=== PATIENT | female | born 1945 | race Caucasian/White ===

== ENCOUNTER 2024-05-19 10:02 | Inpatient (IN) | payer MEDICARE ==
[2024-05-19] MEDS ORDERED: Magnesium 2 GM/50 ML BAG (IN WATER) ONE (10:40)
[2024-05-19] MEDS ORDERED: methylPREDNISolone Sod Succ/PF 125 MG/2 ML VIAL ONE (10:41)
[2024-05-19 10:43] LABS: #Basophils Less than 0.03 10x3/uL (0.0-0.2); #Eosinophils Less than 0.03 10x3/uL (0.0-0.7); %Basophils 0.5 % (0.0-1.0); %Monocytes 8.5 % (0.0-10.0); %Neutrophils 78.8 % (42.0-75.0); Hematocrit 51.8 % (36.0-47.0); Hemoglobin 16.1 g/dL (12.0-16.0); Mean Corpuscular HGB CONC 31.1 g/dL (32.0-36.0); Mean Corpuscular Hemoglobin 29.6 pg (27.0-31.0); Mean Corpuscular Volume 95.2 fL (78.0-98.0); Mean Platelet Volume 8.8 fL (7.4-10.4); Platelet Count 260 10x3/uL (130-400); RBC Distribution Width 13.4 % (11.5-14.5); Red Blood Cell (RBC) Count 5.44 mill/uL (4.20-5.40)
[2024-05-19 11:05] LABS: ALT (SGPT) 26 U/L (8-55); AST (SGOT) 28 U/L (5-34); Albumin 3.6 g/dL (3.4-4.8); Alkaline Phosphatase 94 U/L (40-110); Anion Gap 17 mmol/L (10-20); BUN (Urea Nitrogen) 19 mg/dL (9.8-20.1); Bilirubin, Total 0.7 mg/dL (0.2-1.2); Calc. Creatinine Clearance 0 mL/min (70-130); Calcium 9.4 mg/dL (7.8-10.44); Carbon Dioxide 29 mmol/L (23-31); Chloride 87 mmol/L (98-107); Estimated GFR 68; Globulin 2.7 g/dL (2.4-3.5); Glucose 125 mg/dL (83-110); Magnesium 1.9 mg/dL (1.6-2.6); Potassium 4.1 mmol/L (3.5-5.1); Protein, Total 6.3 g/dL (5.8-8.1); Sodium 129 mmol/L (136-145)
[2024-05-19 11:11] LABS: Troponin I 0.036 ng/mL (< 0.028)
[2024-05-19] MEDS ORDERED: Ipratropium/Albuterol 3 ML NEB ONE ×2 (11:46→14:08)
[2024-05-19] MEDS ORDERED: Ipratropium/Albuterol 3 ML NEB NEB PRN (13:21)
[2024-05-19 14:06] VITALS: BMI 23.8
[2024-05-19] MEDS: Ipratropium/Albuterol 3 ML NEB NEB SCH (14:15)
[2024-05-19 14:23] LABS: Troponin I 0.028 ng/mL (< 0.028)
[2024-05-19] MEDS ORDERED: Ondansetron PF 4 MG/2 ML Vial IVP PRN (14:38)
[2024-05-19] MEDS ORDERED: Bisacodyl 5 MG TAB PO PRN (14:38)
[2024-05-19] MEDS ORDERED: Acetaminophen 650 MG Suppository PR PRN (14:38)
[2024-05-19] MEDS ORDERED: Senokot S 8.6-50 MG TAB PO PRN (14:38)
[2024-05-19] MEDS ORDERED: Dextrose 50% Abboject 50 ML SYRINGE SLOW IVP PRN (14:59)
[2024-05-19] MEDS ORDERED: Glucagon 1 MG/ML KIT IM PRN (14:59)
[2024-05-19] MEDS ORDERED: Insulin Lispro 100 UNIT/ML 10 ML VIAL SC PRN (14:59)
[2024-05-19] MEDS ORDERED: Dextrose 5% in Water 1,000 ML IV PRN (14:59)
[2024-05-19 15:54] LABS: Magnesium 2.4 mg/dL (1.6-2.6)
[2024-05-19 15:58] LABS: Troponin I 0.037 ng/mL (< 0.028)
[2024-05-19] MEDS: Guaifenesin DM 100-10/5 ML UDCUP PO SCH (16:08)
[2024-05-19] MEDS: FLU (Fluad Triv) TS24-25 (65UP)/MF59C/PF 45 MCG/0.5 ML Syringe IM ONE (16:34)
[2024-05-19] MEDS: Aspirin Chewable 81 MG TAB PO SCH (17:07)
[2024-05-19] MEDS: methylPREDNISolone Sod Succ 40 MG VIAL IVP SCH (17:14)
[2024-05-19 18:26] LABS: Magnesium 2.4 mg/dL (1.6-2.6)
[2024-05-19] MEDS: Budesonide 0.5 MG/2 ML NEB INH SCH (18:29)
[2024-05-19] MEDS: Arformoterol 15 MCG/2 ML NEB NEB SCH (18:29)
[2024-05-19] MEDS: Amoxicillin/Potassium Clav 875 MG TAB PO SCH (21:43)
[2024-05-19] MEDS: Famotidine 20 MG TAB PO SCH (21:43)
[2024-05-19] MEDS: Benzonatate 100 MG CAP PO PRN (21:43)
[2024-05-19] MEDS: Famotidine/PF 20 mg/2ml Vial SLOW IVP SCH (23:06)
[2024-05-20 05:11] LABS: #Basophils Less than 0.03 10x3/uL (0.0-0.2); #Eosinophils Less than 0.03 10x3/uL (0.0-0.7); %Lymphocytes 5.1 % (21.0-51.0); %Monocytes 5.3 % (0.0-10.0); %Neutrophils 89.4 % (42.0-75.0); Hematocrit 49.6 % (36.0-47.0); Hemoglobin 15.4 g/dL (12.0-16.0); Mean Corpuscular Hemoglobin 29.3 pg (27.0-31.0); Mean Corpuscular Volume 94.3 fL (78.0-98.0); Platelet Count 250 10x3/uL (130-400); RBC Distribution Width 13.4 % (11.5-14.5); Red Blood Cell (RBC) Count 5.26 mill/uL (4.20-5.40)
[2024-05-20 05:31] LABS: ALT (SGPT) 27 U/L (8-55); AST (SGOT) 33 U/L (5-34); Albumin 3.6 g/dL (3.4-4.8); Alkaline Phosphatase 85 U/L (40-110); Anion Gap 14 mmol/L (10-20); BUN (Urea Nitrogen) 16 mg/dL (9.8-20.1); Bilirubin, Total 0.5 mg/dL (0.2-1.2); Calc. Creatinine Clearance 54 mL/min (70-130); Calcium 9.2 mg/dL (7.8-10.44); Carbon Dioxide 33 mmol/L (23-31); Chloride 86 mmol/L (98-107); Estimated GFR 78; Globulin 2.7 g/dL (2.4-3.5); Glucose 110 mg/dL (83-110); Potassium 4.7 mmol/L (3.5-5.1); Protein, Total 6.3 g/dL (5.8-8.1); Sodium 128 mmol/L (136-145)
[2024-05-20] MEDS: Enoxaparin 40 MG (0.4 mL) SYRINGE SC SCH (08:45)
[2024-05-20] MEDS: Aspirin 81 mg Enteric Coated Tablet PO SCH (08:46)
[2024-05-20] MEDS: Acetaminophen 325 MG TAB PO PRN (08:46)
[2024-05-20] MEDS: Azithromycin 250 MG TAB PO SCH (11:07)
[2024-05-20] MEDS: Azithromycin 500 MG in Sodium Chloride 0.9% 250 ML 250 ML IVPB SCH (11:14)
[2024-05-20] MEDS: Insulin Lispro 100 UNIT/ML 10 ML VIAL SC PRN (13:59)
[2024-05-20] MEDS: Montelukast Sodium 10 mg Tablet PO SCH (20:22)
[2024-05-21 05:05] LABS: #Basophils Less than 0.03 10x3/uL (0.0-0.2); #Eosinophils Less than 0.03 10x3/uL (0.0-0.7); %Basophils 0.1 % (0.0-1.0); %Lymphocytes 1.9 % (21.0-51.0); %Monocytes 4.5 % (0.0-10.0); %Neutrophils 93.2 % (42.0-75.0); Hematocrit 47.6 % (36.0-47.0); Hemoglobin 14.4 g/dL (12.0-16.0); Mean Corpuscular HGB CONC 30.3 g/dL (32.0-36.0); Mean Corpuscular Hemoglobin 28.9 pg (27.0-31.0); Mean Corpuscular Volume 95.6 fL (78.0-98.0); Mean Platelet Volume 8.7 fL (7.4-10.4); Platelet Count 252 10x3/uL (130-400); RBC Distribution Width 13.5 % (11.5-14.5); Red Blood Cell (RBC) Count 4.98 mill/uL (4.20-5.40)
[2024-05-21 05:23] LABS: Anion Gap 9 mmol/L (10-20); BUN (Urea Nitrogen) 19 mg/dL (9.8-20.1); Calc. Creatinine Clearance 60 mL/min (70-130); Calcium 9.2 mg/dL (7.8-10.44); Carbon Dioxide 38 mmol/L (23-31); Chloride 86 mmol/L (98-107); Estimated GFR 87; Glucose 131 mg/dL (83-110); Potassium 4.5 mmol/L (3.5-5.1); Sodium 128 mmol/L (136-145)
[2024-05-21] MEDS: predniSONE 20 MG TAB PO SCH (09:30)
[2024-05-21] MEDS: Azithromycin 250 MG TAB PO SCH (09:30)
[2024-05-21 12:11] VITALS: BP 118/57; TEMP 97.8
== END 2024-05-21 15:00 | disposition home or self-care (01) | DRG 189 ==
LOC: ERS 10:02 → ERHOLD 13:28 → 2NO 15:15
PROVIDERS: ADMIT Family Medicine; ATTEND Internal Medicine
DX: J96.21 Acute and chronic respiratory failure with hypoxia (principal); I21.A1 Myocardial infarction type 2; I50.22 Chronic systolic (congestive) heart failure; J44.1 Chronic obstructive pulmonary disease with (acute) exacerbation; E87.1 Hypo-osmolality and hyponatremia; R73.03 Prediabetes; D75.1 Secondary polycythemia; J44.9 Chronic obstructive pulmonary disease, unspecified; I48.91 Unspecified atrial fibrillation; Z79.899 Other long term (current) drug therapy; Z90.710 Acquired absence of both cervix and uterus; Z90.49 Acquired absence of other specified parts of digestive tract; Z98.890 Other specified postprocedural states
CPT/HCPCS: 36415; 36416; 71045; 80048; 80053; 83735; 83880; 84484; 85025; 93005; 93010; 94640; J1650; J1815; J2919; J3475; J7512; J7620; J7626

== ENCOUNTER 2024-05-23 12:44 | Inpatient (IN) | payer MEDICARE ==
[2024-05-23 13:32] LABS: #Basophils Less than 0.03 10x3/uL (0.0-0.2); #Eosinophils Less than 0.03 10x3/uL (0.0-0.7); %Basophils 0.1 % (0.0-1.0); %Lymphocytes 2.6 % (21.0-51.0); %Monocytes 2.6 % (0.0-10.0); %Neutrophils 94.3 % (42.0-75.0); Hematocrit 54.4 % (36.0-47.0); Hemoglobin 17.1 g/dL (12.0-16.0); Mean Corpuscular HGB CONC 31.4 g/dL (32.0-36.0); Mean Corpuscular Hemoglobin 28.9 pg (27.0-31.0); Mean Platelet Volume 8.7 fL (7.4-10.4); Platelet Count 269 10x3/uL (130-400); RBC Distribution Width 13.7 % (11.5-14.5); Red Blood Cell (RBC) Count 5.91 mill/uL (4.20-5.40)
[2024-05-23 13:33] LABS: ALT (SGPT) 46 U/L (8-55); AST (SGOT) 37 U/L (5-34); Albumin 4.1 g/dL (3.4-4.8); Alkaline Phosphatase 81 U/L (40-110); Anion Gap 10 mmol/L (10-20); BUN (Urea Nitrogen) 20 mg/dL (9.8-20.1); Calc. Creatinine Clearance 0 mL/min (70-130); Calcium 9.7 mg/dL (7.8-10.44); Carbon Dioxide 39 mmol/L (23-31); Chloride 82 mmol/L (98-107); Estimated GFR 77; Globulin 2.6 g/dL (2.4-3.5); Glucose 195 mg/dL (83-110); Lipase 24 U/L (8-78); Potassium 4.1 mmol/L (3.5-5.1); Protein, Total 6.7 g/dL (5.8-8.1); Sodium 127 mmol/L (136-145)
[2024-05-23 13:36] LABS: Troponin I 0.026 ng/mL (< 0.028)
[2024-05-23 13:55] LABS: Bacteria/HPF None Seen HPF (None Seen); Bilirubin Negative (Negative); Blood, Urine Negative (Negative); CAUTI Indications for Culture Alt mental st,lethar; Clarity Clear (Clear); Glucose, Urine (Dipstick) Normal (Negative); Ketone, Urine Negative (Negative); Leukocyte Negative Leu/uL (Negative); Nitrite Negative (Negative); Protein, Urine (Dipstick) Negative (Neg-Trace); RBC/HPF None Seen HPF (0-3); Specific Gravity, Urine 1.007 (1.002-1.036); Squamous Epithelial 0-3 HPF (0-3); Urobilinogen Normal mg/dL (Less than 2); WBC/HPF 0-3 HPF (0-3)
[2024-05-23 14:05] LABS: INR-International Normal Ratio 1.2; Prothrombin Time 14.7 sec (12.0-14.7)
[2024-05-23 14:06] LABS: PTT 34.1 sec (22.9-36.1)
[2024-05-23 14:08] LABS: Urine Culture Reflex No No
[2024-05-23] MEDS ORDERED: Acetaminophen 650 MG Suppository PR PRN (14:47)
[2024-05-23] MEDS ORDERED: Ondansetron ODT 4 MG TAB PO PRN (14:47)
[2024-05-23] MEDS ORDERED: Ondansetron PF 4 MG/2 ML Vial IVP PRN (14:47)
[2024-05-23 16:32] LABS: Lactic Acid 1.78 mmol/L (0.5-2.2)
[2024-05-23] MEDS: methylPREDNISolone Sod Succ 40 MG VIAL IVP SCH (17:08)
[2024-05-23] MEDS ORDERED: Glucagon 1 MG/ML KIT IM PRN (17:51)
[2024-05-23] MEDS ORDERED: Dextrose 5% in Water 1,000 ML IV PRN (17:51)
[2024-05-23] MEDS ORDERED: Insulin Lispro 100 UNIT/ML 10 ML VIAL SC PRN (17:51)
[2024-05-23] MEDS ORDERED: Dextrose 50% Abboject 50 ML SYRINGE SLOW IVP PRN (17:51)
[2024-05-23] MEDS: Ipratropium/Albuterol 3 ML NEB NEB SCH (18:56)
[2024-05-23] MEDS: Mometasone 200 MCG/Formoterol 5 MCG 120 PUFF INHALER INH SCH (18:57)
[2024-05-23] MEDS: Montelukast Sodium 10 mg Tablet PO SCH (20:39)
[2024-05-23] MEDS: Pramipexole Di-HCl 1 MG TAB PO SCH (20:39)
[2024-05-23] MEDS: LevoFLOXacin 750 MG TAB PO SCH (20:39)
[2024-05-23] MEDS ORDERED: Non-Formulary Item 1 EACH (Tiotropium Bromide 4 GM Inhaler) INH SCH (21:00)
[2024-05-23] MEDS: Acetaminophen 325 MG TAB PO PRN (23:45)
[2024-05-24 04:29] LABS: #Basophils Less than 0.03 10x3/uL (0.0-0.2); #Eosinophils Less than 0.03 10x3/uL (0.0-0.7); %Lymphocytes 3.7 % (21.0-51.0); %Neutrophils 93.5 % (42.0-75.0); Hematocrit 49.3 % (36.0-47.0); Hemoglobin 15.1 g/dL (12.0-16.0); Mean Corpuscular HGB CONC 30.6 g/dL (32.0-36.0); Mean Corpuscular Volume 94.8 fL (78.0-98.0); Mean Platelet Volume 8.6 fL (7.4-10.4); Platelet Count 212 10x3/uL (130-400); RBC Distribution Width 13.5 % (11.5-14.5)
[2024-05-24 04:52] LABS: Anion Gap 11 mmol/L (10-20); BUN (Urea Nitrogen) 18 mg/dL (9.8-20.1); Calc. Creatinine Clearance 59 mL/min (70-130); Calcium 8.7 mg/dL (7.8-10.44); Carbon Dioxide 32 mmol/L (23-31); Chloride 86 mmol/L (98-107); Estimated GFR 88; Glucose 126 mg/dL (83-110); Sodium 124 mmol/L (136-145)
[2024-05-24] MEDS: Enoxaparin 40 MG (0.4 mL) SYRINGE SC SCH (08:42)
[2024-05-24] MEDS: dilTIAZem CD 120 MG CAP PO SCH (08:42)
[2024-05-24] MEDS ORDERED: Roflumilast [Daliresp] 500 MCG Tablet PO SCH (09:00)
[2024-05-24 14:25] LABS: Sodium 128 mmol/L (136-145)
[2024-05-24] MEDS: LevoFLOXacin 750 MG TAB PO SCH (19:57)
[2024-05-24] MEDS ORDERED: Furosemide 20 MG TAB PO SCH (21:00)
[2024-05-25] MEDS: Ipratropium/Albuterol 3 ML NEB NEB PRN (03:38)
[2024-05-25 04:32] LABS: #Basophils Less than 0.03 10x3/uL (0.0-0.2); #Eosinophils Less than 0.03 10x3/uL (0.0-0.7); %Basophils 0.2 % (0.0-1.0); %Lymphocytes 2.3 % (21.0-51.0); %Monocytes 4.4 % (0.0-10.0); %Neutrophils 92.6 % (42.0-75.0); Hematocrit 48.9 % (36.0-47.0); Hemoglobin 14.6 g/dL (12.0-16.0); Mean Corpuscular HGB CONC 29.9 g/dL (32.0-36.0); Mean Corpuscular Hemoglobin 28.9 pg (27.0-31.0); Mean Corpuscular Volume 96.8 fL (78.0-98.0); Platelet Count 208 10x3/uL (130-400); RBC Distribution Width 13.8 % (11.5-14.5); Red Blood Cell (RBC) Count 5.05 mill/uL (4.20-5.40)
[2024-05-25 04:43] LABS: Anion Gap 12 mmol/L (10-20); BUN (Urea Nitrogen) 21 mg/dL (9.8-20.1); Calc. Creatinine Clearance 59 mL/min (70-130); Calcium 8.7 mg/dL (7.8-10.44); Carbon Dioxide 32 mmol/L (23-31); Chloride 89 mmol/L (98-107); Estimated GFR 88; Glucose 172 mg/dL (83-110); Potassium 5.3 mmol/L (3.5-5.1); Sodium 128 mmol/L (136-145)
[2024-05-25] MEDS: Furosemide 20 MG TAB PO SCH (09:09)
[2024-05-25] MEDS: Aspirin 81 mg Enteric Coated Tablet PO SCH (09:10)
[2024-05-25] MEDS: Insulin Lispro 100 UNIT/ML 10 ML VIAL SC PRN (19:23)
[2024-05-25] MEDS: methylPREDNISolone Sod Succ 40 MG VIAL IVP SCH (21:07)
[2024-05-26 04:13] LABS: Anion Gap 11 mmol/L (10-20); BUN (Urea Nitrogen) 24 mg/dL (9.8-20.1); Calc. Creatinine Clearance 60 mL/min (70-130); Calcium 8.8 mg/dL (7.8-10.44); Carbon Dioxide 39 mmol/L (23-31); Chloride 85 mmol/L (98-107); Estimated GFR 88; Glucose 129 mg/dL (83-110); Potassium 5.6 mmol/L (3.5-5.1); Sodium 129 mmol/L (136-145)
[2024-05-26 08:37] LABS: Actual Bicarbonate (HCO3v) 32.8 mEq/L (22-28); Base Excess 5.8 mEq/L (-2.0 to +3.0); Calcium, Ionized (venous) 1.07 mmol/L (1.16-1.32); Chloride (VBG) 85 mmol/L (98-106); Hematocrit-VBG 49 % (36.0-47.0); Hemoglobin (Hb) 16.5 g/dL (11.7-16.1); Potassium (VBG) 5.51 mmol/L (3.70-5.30); Sodium 125 mmol/L (133-146); pH (venous) 7.386 (7.32-7.43)
[2024-05-26] MEDS: Sodium Polystyrene Sulfonate 15 GM (60 mL) BOT PO SCH (13:09)
[2024-05-26] MEDS: Furosemide 20 MG TAB PO SCH (13:10)
[2024-05-26] MEDS: Budesonide 0.5 MG/2 ML NEB INH SCH (19:37)
[2024-05-26] MEDS: FLU (Fluad Triv) TS24-25 (65UP)/MF59C/PF 45 MCG/0.5 ML Syringe IM ONE (23:57)
[2024-05-27 04:36] LABS: #Basophils Less than 0.03 10x3/uL (0.0-0.2); #Eosinophils Less than 0.03 10x3/uL (0.0-0.7); %Basophils 0.3 % (0.0-1.0); %Lymphocytes 2.1 % (21.0-51.0); %Neutrophils 91.2 % (42.0-75.0); Hematocrit 47.2 % (36.0-47.0); Hemoglobin 14.4 g/dL (12.0-16.0); Mean Corpuscular HGB CONC 30.5 g/dL (32.0-36.0); Mean Corpuscular Hemoglobin 29.2 pg (27.0-31.0); Mean Corpuscular Volume 95.7 fL (78.0-98.0); Platelet Count 194 10x3/uL (130-400); RBC Distribution Width 13.7 % (11.5-14.5); Red Blood Cell (RBC) Count 4.93 mill/uL (4.20-5.40)
[2024-05-27 05:06] LABS: Anion Gap 11 mmol/L (10-20); BUN (Urea Nitrogen) 21 mg/dL (9.8-20.1); Calc. Creatinine Clearance 63 mL/min (70-130); Calcium 8.7 mg/dL (7.8-10.44); Carbon Dioxide 39 mmol/L (23-31); Chloride 82 mmol/L (98-107); Estimated GFR 89; Glucose 139 mg/dL (83-110); Potassium 5.2 mmol/L (3.5-5.1); Sodium 127 mmol/L (136-145)
[2024-05-28 06:29] LABS: Anion Gap 14 mmol/L (10-20); BUN (Urea Nitrogen) 20 mg/dL (9.8-20.1); Calc. Creatinine Clearance 65 mL/min (70-130); Calcium 8.7 mg/dL (7.8-10.44); Carbon Dioxide 38 mmol/L (23-31); Chloride 81 mmol/L (98-107); Estimated GFR 90; Glucose 99 mg/dL (83-110); Potassium 4.5 mmol/L (3.5-5.1); Sodium 128 mmol/L (136-145)
[2024-05-28 07:00] VITALS: BMI 23.0
[2024-05-28] MEDS: predniSONE 20 MG TAB PO SCH (09:46)
[2024-05-28 09:47] VITALS: BP 128/59
[2024-05-28 14:09] VITALS: TEMP 98.4
== END 2024-05-28 15:04 | disposition home or self-care (01) | DRG 189 ==
LOC: ERS 12:44 → IMCU/EMU 14:38
PROVIDERS: ADMIT Family Medicine; ATTEND Internal Medicine
PROC: 5A0935A Assistance with Respiratory Ventilation, Less than 24 Consecutive Hours, High Flow/Velocity Cannula (ICD-10-PCS; principal; 2024-05-23)
DX: J96.21 Acute and chronic respiratory failure with hypoxia (principal); I50.22 Chronic systolic (congestive) heart failure; E87.1 Hypo-osmolality and hyponatremia; J44.1 Chronic obstructive pulmonary disease with (acute) exacerbation; J96.22 Acute and chronic respiratory failure with hypercapnia; R73.03 Prediabetes; I11.0 Hypertensive heart disease with heart failure; R53.81 Other malaise; E87.5 Hyperkalemia; Z90.710 Acquired absence of both cervix and uterus; Z90.49 Acquired absence of other specified parts of digestive tract; Z98.890 Other specified postprocedural states; Z99.81 Dependence on supplemental oxygen
CPT/HCPCS: 36415; 36416; 71045; 80048; 80053; 81001; 82805; 83605; 83690; 83735; 83880; 84484; 85025; 85610; 85730; 87040; 87086; 93005; 94640; 94760; J1650; J2919; J7512; J7620; J7626

== ENCOUNTER 2024-06-28 15:29 | Inpatient (IN) | payer MEDICARE ==
[~2024-06-28 15:29] MED LIST: Iopamidol-370 76% 500 ML MDV (1 ML CHARGE) ONE
[2024-06-28 16:56] LABS: Hematocrit 44.2 % (36.0-47.0); Hemoglobin 13.5 g/dL (12.0-16.0); Mean Corpuscular HGB CONC 30.5 g/dL (32.0-36.0); Mean Corpuscular Hemoglobin 28.7 pg (27.0-31.0); Mean Corpuscular Volume 93.8 fL (78.0-98.0); Mean Platelet Volume 8.9 fL (7.4-10.4); Platelet Count 244 10x3/uL (130-400); RBC Distribution Width 15.2 % (11.5-14.5); Red Blood Cell (RBC) Count 4.71 mill/uL (4.20-5.40)
[2024-06-28 17:11] LABS: ALT (SGPT) 33 U/L (8-55); AST (SGOT) 32 U/L (5-34); Albumin 3.4 g/dL (3.4-4.8); Alkaline Phosphatase 96 U/L (40-110); Anion Gap 20 mmol/L (10-20); BUN (Urea Nitrogen) 22 mg/dL (9.8-20.1); Bilirubin, Total 1.4 mg/dL (0.2-1.2); Calc. Creatinine Clearance 0 mL/min (70-130); Calcium 10.4 mg/dL (7.8-10.44); Carbon Dioxide 42 mmol/L (23-31); Chloride 80 mmol/L (98-107); Estimated GFR 89; Globulin 3.3 g/dL (2.4-3.5); Glucose 158 mg/dL (83-110); Lipase 35 U/L (8-78); Potassium 3.2 mmol/L (3.5-5.1); Protein, Total 6.7 g/dL (5.8-8.1); Sodium 139 mmol/L (136-145)
[2024-06-28 17:15] LABS: Band 5 % (5-11); Macrocytosis SLIGHT = 6-15 cells HPF (0-5); Monocytes 1 % (0-10); Neutrophil 94 % (42-75); Platelet Adequacy Comment Platelets Normal; Polychromasia SLIGHT = 2-3 cells HPF (0-2); Tear Drops SLIGHT = 2-5 cells HPF (0-1)
[2024-06-28 17:19] LABS: Troponin I 0.038 ng/mL (< 0.028)
[2024-06-28] MEDS ORDERED: Sodium Chloride 0.9% 250 ML 0 ML ONE (18:03)
[2024-06-28] MEDS ORDERED: Piperacillin/Tazobactam 4.5 GM VIAL ONE (18:03)
[2024-06-28] MEDS ORDERED: Sodium Chloride 0.9% 100 ML ONE (18:07)
[2024-06-28] MEDS ORDERED: Morphine 10 MG/ML VIAL ONE (18:26)
[2024-06-28] MEDS ORDERED: Oxymetazoline HCl 0.05% (30 ML BOT) ONE ×2 (18:34→18:35)
[2024-06-28] MEDS ORDERED: Lidocaine Viscous Sol 2% 15 ml UD Cup ONE (18:38)
[2024-06-28] MEDS ORDERED: Morphine 2 MG/ML VIAL SLOW IVP PRN ×2 (19:12→23:15)
[2024-06-28 19:29] LABS: PTT 27.1 sec (22.9-36.1)
[2024-06-28] MEDS ORDERED: EPINEPHrine 1 MG/ML VIAL ONE (19:37)
[2024-06-28] MEDS ORDERED: CEFAZOLIN 2 GM VIAL ONE (19:37)
[2024-06-28] MEDS ORDERED: Bupivacaine 0.25% HCL 30 ML VIAL ONE (19:38)
[2024-06-28] MEDS ORDERED: fentaNYL PF 100 MCG/2 ML SYRINGE ONE (20:42)
[2024-06-28] MEDS ORDERED: PROPOFOL 20 ML ONE (20:42)
[2024-06-28] MEDS ORDERED: SUCCINYLCHOLINE/SOD CL,ISO/PF 200 MG/10 ML SYRINGE FS ONE (20:43)
[2024-06-28] MEDS ORDERED: Rocuronium Bromide 10 MG/ML (10ML VIAL) ONE (20:43)
[2024-06-28] MEDS ORDERED: Lidocaine 2% PF 5 ML VIAL ONE (20:43)
[2024-06-28 22:59] LABS: Actual Bicarbonate (HCO3a) 32.2 mEq/L (22-28); Base Excess (BEa) 9.4 mEq/L (-2.0 to +3.0); CO2 Tension 36.9 mmHg (35.0-45.0); Hematocrit-ABG 32 % (36.0-47.0); Hemoglobin (Hb) 10.9 g/dL (12.0-16.0); O2 Tension (PaO2), arterial 76.6 mmHg (> 60.0); Potassium - ABG Lab 3.29 mmol/L (3.70-5.30); Puncture Site RR; pH, Arterial 7.559 (7.35-7.45)
[2024-06-28 23:00] LABS: ALV-art Gradient 162.475 mmHg (0-20)
[2024-06-28] MEDS ORDERED: DISCONTINUE PREVIOUS NARCOTIC PAIN MEDICATIONS AND BENZODIAZEPINES FS SCH (23:15)
[2024-06-28] MEDS ORDERED: Propofol BOLUS 1,000 MG/100 ML VIAL IV PRN (23:15)
[2024-06-28] MEDS ORDERED: Fentanyl BOLUS 250 ML IVPB PRN (23:15)
[2024-06-28] MEDS ORDERED: Lorazepam 2 MG/ML VIAL SLOW IVP PRN (23:15)
[2024-06-28] MEDS ORDERED: Dextrose 5% in Water 1,000 ML IV PRN (23:27)
[2024-06-28] MEDS ORDERED: Glucagon 1 MG/ML KIT IM PRN (23:27)
[2024-06-28] MEDS: Fentanyl CADD 100 ML IV SCH (23:29)
[2024-06-28] MEDS: Propofol 1,000 MG/100 ML VIAL IV PRN (23:34)
[2024-06-28] MEDS: Potassium Chloride 20 MEQ in Premix 1 BAG IVPB SCH (23:35)
[2024-06-28] MEDS: Sodium Chloride 0.9% 1,000 ML IV SCH (23:35)
[2024-06-28] MEDS: Propofol 1,000 MG/100 ML VIAL IV ONE (23:40)
[2024-06-28] MEDS: Piperacillin/Tazobactam 3.375 GM in Sodium Chloride 0.9% 100 ML IVPB SCH (23:43)
[2024-06-29] MEDS: Ventilator Sedation Protocol 1 EACH FS ONE (00:37)
[2024-06-29] MEDS: Famotidine/PF 20 mg/2ml Vial SLOW IVP SCH (00:39)
[2024-06-29] MEDS: Ipratropium/Albuterol 3 ML NEB NEB SCH ×2 (01:54→18:17)
[2024-06-29] MEDS: Sodium Chloride 0.9% 1,000 ML IV SCH ×2 (02:06→08:29)
[2024-06-29 06:01] LABS: Hematocrit 35.9 % (36.0-47.0); Hemoglobin 11.3 g/dL (12.0-16.0); Mean Corpuscular HGB CONC 31.5 g/dL (32.0-36.0); Mean Corpuscular Hemoglobin 29.1 pg (27.0-31.0); Mean Corpuscular Volume 92.5 fL (78.0-98.0); Platelet Count 167 10x3/uL (130-400); RBC Distribution Width 15.4 % (11.5-14.5); Red Blood Cell (RBC) Count 3.88 mill/uL (4.20-5.40)
[2024-06-29 06:29] LABS: Band 2 % (5-11); Lymphocytes 1 % (21-51); Metamyelocyte 1 % (0-0); Monocytes 1 % (0-10); Neutrophil 95 % (42-75); Platelet Adequacy Comment Platelets Normal; RBC Morphology Within Normal Limits
[2024-06-29 06:34] LABS: Anion Gap 12 mmol/L (10-20); BUN (Urea Nitrogen) 16 mg/dL (9.8-20.1); Calc. Creatinine Clearance 71 mL/min (70-130); Calcium 8.6 mg/dL (7.8-10.44); Carbon Dioxide 35 mmol/L (23-31); Chloride 96 mmol/L (98-107); Estimated GFR 93; Glucose 141 mg/dL (83-110); Magnesium 1.6 mg/dL (1.6-2.6); Potassium 3.9 mmol/L (3.5-5.1); Sodium 139 mmol/L (136-145)
[2024-06-29] MEDS: Mometasone 200 MCG/Formoterol 5 MCG 120 PUFF INHALER INH SCH (07:24)
[2024-06-29 08:11] LABS: Actual Bicarbonate (HCO3a) 37.6 mEq/L (22-28); CO2 Tension 53.4 mmHg (35.0-45.0); Carboxyhemoglobin (COHb) 1.5 gm% (0.0-3.0); Hematocrit-ABG 34 % (36.0-47.0); Hemoglobin (Hb) 11.4 g/dL (12.0-16.0); O2 Tension (PaO2), arterial 75.7 mmHg (> 60.0); pH, Arterial 7.465 (7.35-7.45)
[2024-06-29 08:16] LABS: Puncture Site Right Radial artery
[2024-06-29] MEDS: Heparin 5,000 UNITS/ML VIAL SC SCH (08:20)
[2024-06-29] MEDS: Ipratropium/Albuterol 3 ML NEB NEB PRN (10:21)
[2024-06-29] MEDS: Morphine 2 MG/ML VIAL SLOW IVP PRN (16:30)
[2024-06-29] MEDS: Budesonide 0.5 MG/2 ML NEB INH SCH (18:18)
[2024-06-29] MEDS: Montelukast Sodium 10 mg Tablet PO SCH (20:35)
[2024-06-29] MEDS: Dextrose 50% Abboject 50 ML SYRINGE SLOW IVP PRN (21:17)
[2024-06-29] MEDS: Potassium Chloride 10 MEQ in Dextrose 5 % And 0.9 % NaCl 1,000 ML IV SCH (23:09)
[2024-06-30 04:19] LABS: #Basophils 0.04 10x3/uL (0.0-0.2); #Eosinophils Less than 0.03 10x3/uL (0.0-0.7); %Basophils 0.2 % (0.0-1.0); %Lymphocytes 2.7 % (21.0-51.0); %Monocytes 2.3 % (0.0-10.0); %Neutrophils 93.6 % (42.0-75.0); Hematocrit 35.3 % (36.0-47.0); Hemoglobin 10.6 g/dL (12.0-16.0); Mean Corpuscular Hemoglobin 28.6 pg (27.0-31.0); Mean Corpuscular Volume 95.4 fL (78.0-98.0); Mean Platelet Volume 9.3 fL (7.4-10.4); Platelet Count 156 10x3/uL (130-400); RBC Distribution Width 15.4 % (11.5-14.5)
[2024-06-30 04:34] LABS: Anion Gap 9 mmol/L (10-20); BUN (Urea Nitrogen) 11 mg/dL (9.8-20.1); Calc. Creatinine Clearance 75 mL/min (70-130); Calcium 8.3 mg/dL (7.8-10.44); Carbon Dioxide 32 mmol/L (23-31); Chloride 102 mmol/L (98-107); Estimated GFR 95; Glucose 92 mg/dL (83-110); Potassium 3.3 mmol/L (3.5-5.1); Sodium 140 mmol/L (136-145)
[2024-06-30] MEDS: Ondansetron PF 4 MG/2 ML Vial IVP PRN (06:08)
[2024-06-30] MEDS ORDERED: Electrolyte Replacement Protocol 1 EACH FS SCH (07:30)
[2024-06-30] MEDS ORDERED: Electrolyte Replacement Protocol FS PRN (07:45)
[2024-06-30] MEDS: FLU (Fluad Triv) TS24-25 (65UP)/MF59C/PF 45 MCG/0.5 ML Syringe IM ONE (09:14)
[2024-06-30] MEDS: DC Sedation Protocol FS ONE (13:19)
[2024-07-01] MEDS: Ketorolac Tromethamine 30 MG (1 mL) VIAL IVP SCH (02:55)
[2024-07-01 05:29] LABS: #Basophils 0.03 10x3/uL (0.0-0.2); #Eosinophils Less than 0.03 10x3/uL (0.0-0.7); %Basophils 0.2 % (0.0-1.0); %Eosinophils 0.1 % (0.0-10.0); %Lymphocytes 4.2 % (21.0-51.0); %Monocytes 5.2 % (0.0-10.0); %Neutrophils 89.3 % (42.0-75.0); Hematocrit 33.6 % (36.0-47.0); Hemoglobin 10.2 g/dL (12.0-16.0); Mean Corpuscular HGB CONC 30.4 g/dL (32.0-36.0); Mean Corpuscular Hemoglobin 28.6 pg (27.0-31.0); Mean Corpuscular Volume 94.1 fL (78.0-98.0); Mean Platelet Volume 9.7 fL (7.4-10.4); Platelet Count 159 10x3/uL (130-400); RBC Distribution Width 15.1 % (11.5-14.5); Red Blood Cell (RBC) Count 3.57 mill/uL (4.20-5.40)
[2024-07-01 05:47] LABS: Anion Gap 8 mmol/L (10-20); BUN (Urea Nitrogen) 9 mg/dL (9.8-20.1); Calc. Creatinine Clearance 80 mL/min (70-130); Calcium 8.3 mg/dL (7.8-10.44); Carbon Dioxide 34 mmol/L (23-31); Chloride 104 mmol/L (98-107); Estimated GFR 97; Glucose 91 mg/dL (83-110); Magnesium 1.6 mg/dL (1.6-2.6); Potassium 2.8 mmol/L (3.5-5.1); Sodium 143 mmol/L (136-145)
[2024-07-01] MEDS: Magnesium 2 GM/50 ML(in water) 2 GM in Premix 1 BAG IVPB SCH (08:39)
[2024-07-01] MEDS: Potassium Chloride 20 MEQ in Premix 1 BAG IVPB SCH ×3 (08:44→22:50)
[2024-07-01 17:34] LABS: Potassium 3.2 mmol/L (3.5-5.1)
[2024-07-01] MEDS: Pramipexole Di-HCl 1 MG TAB PO SCH (20:46)
[2024-07-01] MEDS: Pramipexole Di-HCl 0.125 MG TAB PO SCH (23:36)
[2024-07-01] MEDS: Magnesium Oxide 400 MG TAB PO SCH (23:36)
[2024-07-02] MEDS: Pramipexole Di-HCl 1 MG TAB PO SCH ×2 (00:36→20:38)
[2024-07-02 05:10] LABS: #Basophils Less than 0.03 10x3/uL (0.0-0.2); #Eosinophils Less than 0.03 10x3/uL (0.0-0.7); %Basophils 0.1 % (0.0-1.0); %Eosinophils 0.1 % (0.0-10.0); %Lymphocytes 5.7 % (21.0-51.0); %Monocytes 8.5 % (0.0-10.0); %Neutrophils 84.2 % (42.0-75.0); Hematocrit 31.7 % (36.0-47.0); Hemoglobin 9.8 g/dL (12.0-16.0); Mean Corpuscular HGB CONC 30.9 g/dL (32.0-36.0); Mean Corpuscular Hemoglobin 28.9 pg (27.0-31.0); Mean Corpuscular Volume 93.5 fL (78.0-98.0); Mean Platelet Volume 9.5 fL (7.4-10.4); Platelet Count 158 10x3/uL (130-400); RBC Distribution Width 15.3 % (11.5-14.5); Red Blood Cell (RBC) Count 3.39 mill/uL (4.20-5.40)
[2024-07-02 05:27] LABS: Anion Gap 9 mmol/L (10-20); BUN (Urea Nitrogen) 7 mg/dL (9.8-20.1); Calc. Creatinine Clearance 76 mL/min (70-130); Carbon Dioxide 31 mmol/L (23-31); Chloride 105 mmol/L (98-107); Estimated GFR 99; Glucose 106 mg/dL (83-110); Magnesium 1.8 mg/dL (1.6-2.6); Potassium 3.7 mmol/L (3.5-5.1); Sodium 141 mmol/L (136-145)
[2024-07-02 05:29] LABS: Phosphorus 1.4 mg/dL (2.3-4.7)
[2024-07-02] MEDS: Magnesium 2 GM/50 ML(in water) 2 GM in Premix 1 BAG IVPB SCH (08:43)
[2024-07-02] MEDS: Magnesium Oxide 400 MG TAB PO SCH (08:45)
[2024-07-02] MEDS: PHOS-NAK 1 PKT PACK PO SCH (08:46)
[2024-07-02] MEDS: dilTIAZem CD 120 MG CAP PO SCH (15:50)
[2024-07-02] MEDS: HYDROcodone/Acetaminophen 5/325 mg Tablet PO PRN (16:42)
[2024-07-02] MEDS ORDERED: Methocarbamol 500 MG TAB PO PRN (20:17)
[2024-07-02] MEDS: Morphine 2 MG/ML VIAL SLOW IVP SCH (20:33)
[2024-07-02] MEDS: Melatonin 3 MG TAB PO PRN (20:38)
[2024-07-02] MEDS ORDERED: ROFLUMILAST 500 MCG PO SCH (21:00)
[2024-07-03 05:34] LABS: #Basophils Less than 0.03 10x3/uL (0.0-0.2); %Basophils 0.2 % (0.0-1.0); %Eosinophils 0.7 % (0.0-10.0); %Lymphocytes 8.2 % (21.0-51.0); %Monocytes 7.9 % (0.0-10.0); Hematocrit 32.8 % (36.0-47.0); Mean Corpuscular HGB CONC 30.5 g/dL (32.0-36.0); Mean Corpuscular Hemoglobin 28.7 pg (27.0-31.0); Mean Platelet Volume 9.6 fL (7.4-10.4); Platelet Count 159 10x3/uL (130-400); RBC Distribution Width 15.4 % (11.5-14.5); Red Blood Cell (RBC) Count 3.49 mill/uL (4.20-5.40)
[2024-07-03 05:48] LABS: Anion Gap 10 mmol/L (10-20); BUN (Urea Nitrogen) 7 mg/dL (9.8-20.1); Calc. Creatinine Clearance 0 mL/min (70-130); Carbon Dioxide 32 mmol/L (23-31); Chloride 103 mmol/L (98-107); Estimated GFR 98; Glucose 63 mg/dL (83-110); Potassium 3.9 mmol/L (3.5-5.1); Sodium 141 mmol/L (136-145)
[2024-07-03 05:51] LABS: Phosphorus 3.4 mg/dL (2.3-4.7)
[2024-07-03] MEDS ORDERED: MD-Gastroview 120 ML BOT ONE (08:53)
[2024-07-03] MEDS: Magnesium 2 GM/50 ML(in water) 2 GM in Premix 1 BAG IVPB SCH (08:56)
[2024-07-03] MEDS: Sacubitril 24MG/Valsartan 26 MG TAB PO SCH (08:57)
[2024-07-03] MEDS: Dextrose 5 %-0.45 % NaCl 1,000 ML IV SCH ×2 (18:25→21:20)
[2024-07-03] MEDS: Ketorolac Tromethamine 30 MG (1 mL) VIAL IVP SCH (18:25)
[2024-07-03] MEDS: Enoxaparin 30 MG (0.3 mL) SYRINGE SC SCH (21:37)
[2024-07-04 05:43] LABS: #Basophils 0.03 10x3/uL (0.0-0.2); %Basophils 0.2 % (0.0-1.0); %Eosinophils 0.2 % (0.0-10.0); %Monocytes 6.6 % (0.0-10.0); %Neutrophils 86.7 % (42.0-75.0); Hematocrit 35.2 % (36.0-47.0); Hemoglobin 10.8 g/dL (12.0-16.0); Mean Corpuscular HGB CONC 30.7 g/dL (32.0-36.0); Mean Corpuscular Hemoglobin 28.8 pg (27.0-31.0); Mean Corpuscular Volume 93.9 fL (78.0-98.0); Mean Platelet Volume 9.4 fL (7.4-10.4); Platelet Count 183 10x3/uL (130-400); RBC Distribution Width 15.3 % (11.5-14.5); Red Blood Cell (RBC) Count 3.75 mill/uL (4.20-5.40)
[2024-07-04 06:00] LABS: Anion Gap 14 mmol/L (10-20); BUN (Urea Nitrogen) 10 mg/dL (9.8-20.1); Calc. Creatinine Clearance 0 mL/min (70-130); Calcium 7.9 mg/dL (7.8-10.44); Carbon Dioxide 26 mmol/L (23-31); Chloride 102 mmol/L (98-107); Estimated GFR 94; Glucose 182 mg/dL (83-110); Potassium 4.1 mmol/L (3.5-5.1); Sodium 138 mmol/L (136-145)
[2024-07-04] MEDS: Ipratropium/Albuterol 3 ML NEB NEB SCH (12:49)
[2024-07-04] MEDS: Morphine 2 MG/ML VIAL SLOW IVP PRN (14:11)
[2024-07-04] MEDS ORDERED: Rocuronium Bromide 10 MG/ML (10ML VIAL) ONE ×2 (15:51→17:26)
[2024-07-04] MEDS ORDERED: Lidocaine 2% PF 100 mg/5 ml Syringe ONE (15:51)
[2024-07-04] MEDS ORDERED: fentaNYL PF 100 MCG/2 ML SYRINGE ONE (15:51)
[2024-07-04] MEDS ORDERED: NOREPINEPHRINE 8 MG/250 ML-D5W 250 ML ONE (15:51)
[2024-07-04] MEDS ORDERED: PHENYLEPHRINE-NS 100 MCG/ML 10 ML SYRINGE ONE (16:31)
[2024-07-04] MEDS ORDERED: Dexamethasone 20 MG/5 ML VIAL ONE (17:03)
[2024-07-04] MEDS ORDERED: Ondansetron PF 4 MG/2 ML Vial ONE (17:03)
[2024-07-04] MEDS ORDERED: Ventilator Sedation Protocol FS SCH (18:15)
[2024-07-04] MEDS ORDERED: Propofol 1,000 MG/100 ML VIAL IV PRN (18:30)
[2024-07-04] MEDS ORDERED: Morphine 2 MG/ML VIAL SLOW IVP PRN (18:30)
[2024-07-04] MEDS ORDERED: DISCONTINUE PREVIOUS NARCOTIC PAIN MEDICATIONS AND BENZODIAZEPINES FS SCH (18:30)
[2024-07-04] MEDS ORDERED: Fentanyl BOLUS 250 ML IVPB PRN (18:30)
[2024-07-04] MEDS ORDERED: Propofol BOLUS 1,000 MG/100 ML VIAL IV PRN (18:30)
[2024-07-04] MEDS: Dextrose 5 %-0.45 % NaCl 1,000 ML IV SCH ×2 (18:51→21:16)
[2024-07-04] MEDS: Lactated Ringer's 1,000 ML IV SCH (18:52)
[2024-07-04] MEDS: Fentanyl CADD 100 ML IV SCH (19:27)
[2024-07-04] MEDS: Sodium Chloride 0.9% 500 ML IV SCH ×3 (19:49→21:15)
[2024-07-04 19:51] LABS: Actual Bicarbonate (HCO3a) 29.9 mEq/L (22-28); Base Excess (BEa) 4.4 mEq/L (-2.0 to +3.0); CO2 Tension 48.2 mmHg (35.0-45.0); Calcium, Ionized (arterial) 1.14 mmol/L (1.12-1.30); Carboxyhemoglobin (COHb) 1.4 gm% (0.0-3.0); Hematocrit-ABG 36 % (36.0-47.0); Hemoglobin (Hb) 12.1 g/dL (12.0-16.0); O2 Tension (PaO2), arterial 68.2 mmHg (> 60.0); Potassium - ABG Lab 3.22 mmol/L (3.70-5.30)
[2024-07-04 19:52] LABS: Puncture Site Left Brachial artery
[2024-07-04] MEDS: Albumin 25% 25 GM (100 mL) BOT IVPB SCH (20:30)
[2024-07-04] MEDS: Albumin 25% 100 ML ONE (20:52)
[2024-07-04] MEDS: Potassium Chloride 20 MEQ in Premix 1 BAG IVPB SCH (20:53)
[2024-07-04] MEDS: Hydrocortisone Sod Succ/PF 100 mg/2 ml Vial IVP SCH (21:50)
[2024-07-04 21:54] LABS: #Basophils 0.04 10x3/uL (0.0-0.2); #Eosinophils Less than 0.03 10x3/uL (0.0-0.7); %Basophils 0.2 % (0.0-1.0); %Lymphocytes 1.1 % (21.0-51.0); %Neutrophils 95.9 % (42.0-75.0); Hemoglobin 8.9 g/dL (12.0-16.0); Mean Corpuscular HGB CONC 30.7 g/dL (32.0-36.0); Mean Corpuscular Hemoglobin 28.8 pg (27.0-31.0); Mean Corpuscular Volume 93.9 fL (78.0-98.0); Mean Platelet Volume 10.1 fL (7.4-10.4); Platelet Count 151 10x3/uL (130-400); RBC Distribution Width 15.3 % (11.5-14.5); Red Blood Cell (RBC) Count 3.09 mill/uL (4.20-5.40)
[2024-07-04] MEDS: NOREPINEPHRINE 8 MG/250 ML-D5W 250 ML IVPB SCH (22:20)
[2024-07-04] MEDS: NOREPINEPHRINE 8 MG/250 ML-D5W 250 ML ONE (22:27)
[2024-07-04 23:42] LABS: Chloride 104 mmol/L (98-107); Potassium 3.2 mmol/L (3.5-5.1); Sodium 141 mmol/L (136-145)
[2024-07-04 23:43] LABS: Calcium 7.2 mg/dL (7.8-10.44); Glucose 210 mg/dL (83-110)
[2024-07-04 23:44] LABS: Anion Gap 13 mmol/L (10-20); Carbon Dioxide 27 mmol/L (23-31)
[2024-07-04 23:47] LABS: BUN (Urea Nitrogen) 9 mg/dL (9.8-20.1); Calc. Creatinine Clearance 0 mL/min (70-130); Estimated GFR 97
[2024-07-05] MEDS: Dextrose 5 %-0.45 % NaCl 1,000 ML IV SCH (00:50)
[2024-07-05 04:56] LABS: Hematocrit 35.1 % (36.0-47.0); Hemoglobin 11.1 g/dL (12.0-16.0); Mean Corpuscular HGB CONC 31.6 g/dL (32.0-36.0); Mean Corpuscular Volume 91.6 fL (78.0-98.0); Mean Platelet Volume 10.2 fL (7.4-10.4); Platelet Count 171 10x3/uL (130-400); RBC Distribution Width 14.9 % (11.5-14.5); Red Blood Cell (RBC) Count 3.83 mill/uL (4.20-5.40)
[2024-07-05 05:09] LABS: ALT (SGPT) 27 U/L (8-55); AST (SGOT) 24 U/L (5-34); Albumin 2.2 g/dL (3.4-4.8); Alkaline Phosphatase 54 U/L (40-110); Anion Gap 8 mmol/L (10-20); BUN (Urea Nitrogen) 9 mg/dL (9.8-20.1); Bilirubin, Total 1.4 mg/dL (0.2-1.2); Calc. Creatinine Clearance 78 mL/min (70-130); Calcium 7.6 mg/dL (7.8-10.44); Carbon Dioxide 29 mmol/L (23-31); Chloride 103 mmol/L (98-107); Estimated GFR 95; Globulin 1.9 g/dL (2.4-3.5); Glucose 320 mg/dL (83-110); Magnesium 1.8 mg/dL (1.6-2.6); Phosphorus 1.7 mg/dL (2.3-4.7); Potassium 3.7 mmol/L (3.5-5.1); Protein, Total 4.1 g/dL (5.8-8.1); Sodium 136 mmol/L (136-145)
[2024-07-05] MEDS: Sodium Chloride 0.9% 1,000 ML IV SCH ×2 (05:25→07:52)
[2024-07-05] MEDS: Insulin Lispro 100 UNIT/ML 10 ML VIAL SC PRN (05:32)
[2024-07-05 06:17] LABS: Band 26 % (5-11); Lymphocytes 1 % (21-51); Metamyelocyte 1 % (0-0); Monocytes 2 % (0-10); Neutrophil 70 % (42-75); Platelet Adequacy Comment Platelets Normal; Polychromasia SLIGHT = 2-3 cells HPF (0-2); Reactive Lymphocytes 1 % (0-10)
[2024-07-05] MEDS: Lactated Ringer's 1,000 ML IV SCH ×2 (07:50→18:08)
[2024-07-05] MEDS: Hydrocortisone Sod Succ/PF 100 mg/2 ml Vial IVP SCH (08:05)
[2024-07-05] MEDS: Pantoprazole 40 MG VIAL IVP SCH (08:05)
[2024-07-05] MEDS: Lorazepam 2 MG/ML VIAL SLOW IVP PRN (08:46)
[2024-07-05] MEDS: Magnesium 2 GM/50 ML(in water) 2 GM in Premix 1 BAG IVPB SCH (09:01)
[2024-07-05] MEDS: Potassium Phosphate 30 MMOL in Sodium Chloride 0.9% 250 ML 250 ML IVPB SCH (09:31)
[2024-07-05] MEDS ORDERED: LYTES IN TPN IVPB PRN (10:44)
[2024-07-05] MEDS: MULTIVITAMINS IV SCH (13:32)
[2024-07-05] MEDS: D15W AA IV SCH (13:32)
[2024-07-05] MEDS: MULTITRACE IV SCH (13:32)
[2024-07-05] MEDS: [UNRECOGNIZED DRUG - OTHER] IV SCH (13:32)
[2024-07-05 16:16] LABS: #Basophils Less than 0.03 10x3/uL (0.0-0.2); #Eosinophils Less than 0.03 10x3/uL (0.0-0.7); %Basophils 0.1 % (0.0-1.0); %Lymphocytes 3.5 % (21.0-51.0); %Monocytes 2.7 % (0.0-10.0); Hematocrit 27.2 % (36.0-47.0); Hemoglobin 8.7 g/dL (12.0-16.0); Mean Corpuscular Hemoglobin 28.9 pg (27.0-31.0); Mean Corpuscular Volume 90.4 fL (78.0-98.0); Mean Platelet Volume 9.3 fL (7.4-10.4); Platelet Count 139 10x3/uL (130-400); RBC Distribution Width 15.7 % (11.5-14.5); Red Blood Cell (RBC) Count 3.01 mill/uL (4.20-5.40)
[2024-07-05 16:35] LABS: Anion Gap 9 mmol/L (10-20); BUN (Urea Nitrogen) 7 mg/dL (9.8-20.1); Calc. Creatinine Clearance 97 mL/min (70-130); Calcium 7.7 mg/dL (7.8-10.44); Carbon Dioxide 29 mmol/L (23-31); Chloride 105 mmol/L (98-107); Estimated GFR 100; Glucose 182 mg/dL (83-110); Potassium 3.7 mmol/L (3.5-5.1); Sodium 139 mmol/L (136-145)
[2024-07-06 05:17] LABS: #Basophils Less than 0.03 10x3/uL (0.0-0.2); #Eosinophils Less than 0.03 10x3/uL (0.0-0.7); %Basophils 0.2 % (0.0-1.0); %Lymphocytes 3.3 % (21.0-51.0); %Monocytes 2.5 % (0.0-10.0); %Neutrophils 92.7 % (42.0-75.0); Hematocrit 23.2 % (36.0-47.0); Hemoglobin 7.3 g/dL (12.0-16.0); Mean Corpuscular HGB CONC 31.5 g/dL (32.0-36.0); Mean Corpuscular Volume 92.1 fL (78.0-98.0); Mean Platelet Volume 9.8 fL (7.4-10.4); Platelet Count 126 10x3/uL (130-400); RBC Distribution Width 15.9 % (11.5-14.5); Red Blood Cell (RBC) Count 2.52 mill/uL (4.20-5.40)
[2024-07-06 05:25] LABS: ALT (SGPT) 16 U/L (8-55); AST (SGOT) 13 U/L (5-34); Albumin 2.6 g/dL (3.4-4.8); Alkaline Phosphatase 36 U/L (40-110); Anion Gap 8 mmol/L (10-20); BUN (Urea Nitrogen) 8 mg/dL (9.8-20.1); Bilirubin, Total 0.5 mg/dL (0.2-1.2); Calc. Creatinine Clearance 83 mL/min (70-130); Calcium 8.2 mg/dL (7.8-10.44); Carbon Dioxide 31 mmol/L (23-31); Chloride 105 mmol/L (98-107); Estimated GFR 96; Globulin 1.5 g/dL (2.4-3.5); Glucose 192 mg/dL (83-110); Potassium 3.4 mmol/L (3.5-5.1); Protein, Total 4.1 g/dL (5.8-8.1); Sodium 141 mmol/L (136-145)
[2024-07-06 05:35] LABS: Phosphorus 2.3 mg/dL (2.3-4.7)
[2024-07-06 07:11] LABS: Actual Bicarbonate (HCO3a) 31.2 mEq/L (22-28); Base Excess (BEa) 5.3 mEq/L (-2.0 to +3.0); CO2 Tension 52.9 mmHg (35.0-45.0); Calcium, Ionized (arterial) 1.23 mmol/L (1.12-1.30); Carboxyhemoglobin (COHb) 0.3 gm% (0.0-3.0); Hematocrit-ABG 28 % (36.0-47.0); Hemoglobin (Hb) 9.6 g/dL (12.0-16.0); Potassium - ABG Lab 3.27 mmol/L (3.70-5.30); pH, Arterial 7.388 (7.35-7.45)
[2024-07-06 07:12] LABS: ALV-art Gradient 131.075 mmHg (0-20); Puncture Site Right Radial artery
[2024-07-06] MEDS ORDERED: Electrolyte Replacement Protocol FS PRN (07:15)
[2024-07-06] MEDS: Potassium Chloride 40 MEQ in Premix 1 BAG IVPB SCH (07:51)
[2024-07-06] MEDS: Magnesium 2 GM/50 ML(in water) 2 GM in Premix 1 BAG IVPB SCH (07:51)
[2024-07-06] MEDS: Sterile Water 10 ML VIAL IVP SCH (08:13)
[2024-07-06] MEDS: acetaZOLAMIDE Sodium 500 mg Vial IVP SCH (08:13)
[2024-07-06] MEDS ORDERED: Lactated Ringer's 1,000 ML IV SCH (08:45)
[2024-07-06] MEDS: DC Sedation Protocol FS ONE (12:44)
[2024-07-06] MEDS ORDERED: Multivitamins, Adult 10 ML, TRACE ELEMENT CONCENTRATE 1 ML in D15W-AA 5% with Lytes 2,0... IV SCH (14:00)
[2024-07-06] MEDS: Ketorolac Tromethamine 30 MG (1 mL) VIAL IVP SCH (15:27)
[2024-07-07 05:36] LABS: Hematocrit 30.1 % (36.0-47.0); Hemoglobin 9.3 g/dL (12.0-16.0); Mean Corpuscular HGB CONC 30.9 g/dL (32.0-36.0); Mean Corpuscular Hemoglobin 28.8 pg (27.0-31.0); Mean Corpuscular Volume 93.2 fL (78.0-98.0); Mean Platelet Volume 9.4 fL (7.4-10.4); Platelet Count 177 10x3/uL (130-400); RBC Distribution Width 15.4 % (11.5-14.5); Red Blood Cell (RBC) Count 3.23 mill/uL (4.20-5.40)
[2024-07-07 05:38] LABS: Phosphorus 2.5 mg/dL (2.3-4.7)
[2024-07-07 05:41] LABS: ALT (SGPT) 15 U/L (8-55); AST (SGOT) 15 U/L (5-34); Albumin 2.5 g/dL (3.4-4.8); Alkaline Phosphatase 44 U/L (40-110); Anion Gap 8 mmol/L (10-20); BUN (Urea Nitrogen) 14 mg/dL (9.8-20.1); Bilirubin, Total 0.4 mg/dL (0.2-1.2); Calc. Creatinine Clearance 88 mL/min (70-130); Calcium 8.1 mg/dL (7.8-10.44); Carbon Dioxide 32 mmol/L (23-31); Chloride 106 mmol/L (98-107); Estimated GFR 96; Globulin 1.8 g/dL (2.4-3.5); Glucose 187 mg/dL (83-110); Protein, Total 4.3 g/dL (5.8-8.1); Sodium 143 mmol/L (136-145)
[2024-07-07 06:06] LABS: Band 10 % (5-11); Burr Cells SLIGHT = 2-5 cells HPF (0-1); Hypochromia SLIGHT = 6-15 cells HPF (0-5); Lymphocytes 1 % (21-51); Monocytes 1 % (0-10); Neutrophil 88 % (42-75); Platelet Adequacy Comment Platelets Normal; Polychromasia SLIGHT = 2-3 cells HPF (0-2)
[2024-07-07] MEDS: Magnesium 2 GM/50 ML(in water) 2 GM in Premix 1 BAG IVPB SCH (08:54)
[2024-07-07] MEDS: Potassium Chloride 40 MEQ in Premix 1 BAG IVPB SCH ×3 (09:40→17:27)
[2024-07-07] MEDS: Morphine 4 MG/ML VIAL SLOW IVP PRN ×2 (11:55→14:50)
[2024-07-07] MEDS: Morphine 4 MG/ML VIAL ONE (11:58)
[2024-07-07 14:21] LABS: Potassium 3.3 mmol/L (3.5-5.1)
[2024-07-07] MEDS: Potassium Chloride 20 MEQ in Premix 1 BAG IVPB SCH (16:27)
[2024-07-07] MEDS: Dexmedetomidine In 0.9 % NaCl 100 ML IV SCH (19:09)
[2024-07-08 03:38] LABS: Hematocrit 30.2 % (36.0-47.0); Hemoglobin 9.4 g/dL (12.0-16.0); Mean Corpuscular HGB CONC 31.1 g/dL (32.0-36.0); Mean Corpuscular Hemoglobin 29.3 pg (27.0-31.0); Mean Corpuscular Volume 94.1 fL (78.0-98.0); Platelet Count 165 10x3/uL (130-400); RBC Distribution Width 15.1 % (11.5-14.5); Red Blood Cell (RBC) Count 3.21 mill/uL (4.20-5.40)
[2024-07-08 03:54] LABS: Phosphorus 2.7 mg/dL (2.3-4.7)
[2024-07-08 03:56] LABS: ALT (SGPT) 29 U/L (8-55); AST (SGOT) 33 U/L (5-34); Albumin 2.5 g/dL (3.4-4.8); Alkaline Phosphatase 59 U/L (40-110); Anion Gap 8 mmol/L (10-20); BUN (Urea Nitrogen) 20 mg/dL (9.8-20.1); Bilirubin, Total 0.4 mg/dL (0.2-1.2); Calc. Creatinine Clearance 90 mL/min (70-130); Calcium 8.2 mg/dL (7.8-10.44); Carbon Dioxide 32 mmol/L (23-31); Chloride 106 mmol/L (98-107); Estimated GFR 96; Globulin 1.9 g/dL (2.4-3.5); Glucose 268 mg/dL (83-110); Magnesium 2.2 mg/dL (1.6-2.6); Potassium 3.9 mmol/L (3.5-5.1); Protein, Total 4.4 g/dL (5.8-8.1); Sodium 142 mmol/L (136-145)
[2024-07-08 04:03] LABS: Band 1 % (5-11); Hypochromia SLIGHT = 6-15 cells HPF (0-5); Metamyelocyte 1 % (0-0); Monocytes 2 % (0-10); Neutrophil 96 % (42-75); Platelet Adequacy Comment Platelets Normal; Polychromasia SLIGHT = 2-3 cells HPF (0-2)
[2024-07-08] MEDS: Insulin Lispro 100 UNIT/ML 10 ML VIAL SC PRN (11:17)
[2024-07-08] MEDS: Enoxaparin 40 MG (0.4 mL) SYRINGE SC SCH (21:11)
[2024-07-09 03:38] LABS: #Basophils 0.03 10x3/uL (0.0-0.2); #Eosinophils Less than 0.03 10x3/uL (0.0-0.7); %Basophils 0.2 % (0.0-1.0); %Monocytes 2.2 % (0.0-10.0); %Neutrophils 90.7 % (42.0-75.0); Hematocrit 29.9 % (36.0-47.0); Hemoglobin 9.3 g/dL (12.0-16.0); Mean Corpuscular HGB CONC 31.1 g/dL (32.0-36.0); Mean Corpuscular Hemoglobin 29.2 pg (27.0-31.0); Mean Corpuscular Volume 93.7 fL (78.0-98.0); Mean Platelet Volume 9.7 fL (7.4-10.4); Platelet Count 173 10x3/uL (130-400); RBC Distribution Width 14.9 % (11.5-14.5); Red Blood Cell (RBC) Count 3.19 mill/uL (4.20-5.40)
[2024-07-09 04:50] LABS: Anion Gap 7 mmol/L (10-20); BUN (Urea Nitrogen) 22 mg/dL (9.8-20.1); Calc. Creatinine Clearance 42 mL/min (70-130); Carbon Dioxide 34 mmol/L (23-31); Chloride 103 mmol/L (98-107); Estimated GFR 98; Glucose 240 mg/dL (83-110); Potassium 4.1 mmol/L (3.5-5.1); Sodium 140 mmol/L (136-145)
[2024-07-09] MEDS: Lorazepam 2 MG/ML VIAL SLOW IVP SCH (16:40)
[2024-07-09] MEDS: Lorazepam 2 MG/ML VIAL ONE (16:40)
[2024-07-10 04:57] LABS: Hematocrit 29.5 % (36.0-47.0); Hemoglobin 9.4 g/dL (12.0-16.0); Mean Corpuscular HGB CONC 31.9 g/dL (32.0-36.0); Mean Corpuscular Hemoglobin 29.6 pg (27.0-31.0); Mean Corpuscular Volume 92.8 fL (78.0-98.0); Mean Platelet Volume 9.7 fL (7.4-10.4); Platelet Count 172 10x3/uL (130-400); RBC Distribution Width 15.2 % (11.5-14.5); Red Blood Cell (RBC) Count 3.18 mill/uL (4.20-5.40)
[2024-07-10 05:11] LABS: ALT (SGPT) 100 U/L (8-55); AST (SGOT) 68 U/L (5-34); Albumin 2.2 g/dL (3.4-4.8); Alkaline Phosphatase 68 U/L (40-110); Anion Gap 6 mmol/L (10-20); BUN (Urea Nitrogen) 22 mg/dL (9.8-20.1); Bilirubin, Total 0.6 mg/dL (0.2-1.2); Calc. Creatinine Clearance 93 mL/min (70-130); Calcium 7.9 mg/dL (7.8-10.44); Carbon Dioxide 38 mmol/L (23-31); Chloride 99 mmol/L (98-107); Estimated GFR 97; Globulin 1.9 g/dL (2.4-3.5); Glucose 208 mg/dL (83-110); Magnesium 1.9 mg/dL (1.6-2.6); Phosphorus 2.3 mg/dL (2.3-4.7); Potassium 4.1 mmol/L (3.5-5.1); Protein, Total 4.1 g/dL (5.8-8.1); Sodium 139 mmol/L (136-145)
[2024-07-10 05:19] LABS: Band 1 % (5-11); Lymphocytes 2 % (21-51); Monocytes 2 % (0-10); Myelocyte 2 % (0-0); Neutrophil 93 % (42-75); Platelet Adequacy Comment Platelets Normal; Polychromasia SLIGHT = 2-3 cells HPF (0-2); Smudge Cells 2.9 %
[2024-07-10] MEDS: Magnesium 2 GM/50 ML(in water) 2 GM in Premix 1 BAG IVPB SCH (09:30)
[2024-07-10] MEDS: [UNRECOGNIZED DRUG - OTHER] IV SCH (20:45)
[2024-07-10] MEDS: MAGNESIUM SULFATE IV SCH (20:45)
[2024-07-10] MEDS: CALCIUM GLUCONATE IV SCH (20:45)
[2024-07-10] MEDS: Hydrocortisone Sod Succ/PF 100 mg/2 ml Vial IVP SCH ×2 (20:45→21:21)
[2024-07-11 05:31] LABS: ALT (SGPT) 86 U/L (8-55); AST (SGOT) 51 U/L (5-34); Albumin 2.1 g/dL (3.4-4.8); Alkaline Phosphatase 69 U/L (40-110); Anion Gap 4 mmol/L (10-20); BUN (Urea Nitrogen) 20 mg/dL (9.8-20.1); Bilirubin, Total 0.4 mg/dL (0.2-1.2); Calc. Creatinine Clearance 97 mL/min (70-130); Calcium 7.8 mg/dL (7.8-10.44); Carbon Dioxide 40 mmol/L (23-31); Chloride 97 mmol/L (98-107); Estimated GFR 98; Globulin 1.8 g/dL (2.4-3.5); Glucose 210 mg/dL (83-110); Potassium 3.9 mmol/L (3.5-5.1); Protein, Total 3.9 g/dL (5.8-8.1); Sodium 137 mmol/L (136-145)
[2024-07-11 06:20] LABS: Hematocrit 28.8 % (36.0-47.0); Hemoglobin 8.9 g/dL (12.0-16.0); Mean Corpuscular HGB CONC 30.9 g/dL (32.0-36.0); Mean Corpuscular Volume 93.8 fL (78.0-98.0); Mean Platelet Volume 9.9 fL (7.4-10.4); Platelet Count 157 10x3/uL (130-400); RBC Distribution Width 15.6 % (11.5-14.5); Red Blood Cell (RBC) Count 3.07 mill/uL (4.20-5.40)
[2024-07-11 07:18] LABS: Anisocytosis SLIGHT = 6-15 cells HPF (0-5); Band 3 % (5-11); Lymphocytes 5 % (21-51); Monocytes 4 % (0-10); Myelocyte 2 % (0-0); Neutrophil 86 % (42-75); Ovalocytes SLIGHT = 2-5 cells HPF (0-1); Platelet Adequacy Comment Platelets Normal; Polychromasia SLIGHT = 2-3 cells HPF (0-2)
[2024-07-11] MEDS: Magnesium 2 GM/50 ML(in water) 2 GM in Premix 1 BAG IVPB SCH (13:05)
[2024-07-12] MEDS: Lorazepam 2 MG/ML VIAL SLOW IVP PRN (08:57)
[2024-07-12] MEDS ORDERED: GASTROGRAFIN 30 ML BOT ONE (09:51)
[2024-07-12] MEDS: Senokot S 8.6-50 MG TAB PO SCH (20:23)
[2024-07-13 04:24] LABS: Anion Gap 9 mmol/L (10-20); BUN (Urea Nitrogen) 21 mg/dL (9.8-20.1); Calc. Creatinine Clearance 117 mL/min (70-130); Carbon Dioxide 37 mmol/L (23-31); Chloride 98 mmol/L (98-107); Estimated GFR 103; Glucose 105 mg/dL (83-110); Potassium 3.9 mmol/L (3.5-5.1); Sodium 140 mmol/L (136-145)
[2024-07-13 04:42] LABS: Hematocrit 27.2 % (36.0-47.0); Hemoglobin 8.4 g/dL (12.0-16.0); Mean Corpuscular HGB CONC 30.9 g/dL (32.0-36.0); Mean Corpuscular Hemoglobin 29.2 pg (27.0-31.0); Mean Corpuscular Volume 94.4 fL (78.0-98.0); Mean Platelet Volume 9.8 fL (7.4-10.4); Platelet Count 148 10x3/uL (130-400); RBC Distribution Width 16.2 % (11.5-14.5); Red Blood Cell (RBC) Count 2.88 mill/uL (4.20-5.40)
[2024-07-13 06:23] LABS: Anisocytosis SLIGHT = 6-15 cells HPF (0-5); Band 6 % (5-11); Eosinophils 1 % (0-10); Lymphocytes 7 % (21-51); Macrocytosis SLIGHT = 6-15 cells HPF (0-5); Metamyelocyte 3 % (0-0); Monocytes 2 % (0-10); Neutrophil 81 % (42-75); Nucleated RBC (Manual Ct) 1 % (0); Platelet Adequacy Comment Platelets Normal; Polychromasia SLIGHT = 2-3 cells HPF (0-2)
[2024-07-13 07:17] LABS: Magnesium 1.8 mg/dL (1.6-2.6)
[2024-07-13] MEDS: Hydrocortisone Sod Succ/PF 100 mg/2 ml Vial IVP SCH (08:59)
[2024-07-13] MEDS: Magnesium 2 GM/50 ML(in water) 2 GM in Premix 1 BAG IVPB SCH (08:59)
[2024-07-13] MEDS: Polyethylene Glycol 3350 17 GM Packet PO SCH (09:00)
[2024-07-14 04:03] LABS: #Basophils 0.04 10x3/uL (0.0-0.2); %Basophils 0.3 % (0.0-1.0); %Eosinophils 0.7 % (0.0-10.0); %Lymphocytes 11.9 % (21.0-51.0); %Monocytes 7.4 % (0.0-10.0); %Neutrophils 76.3 % (42.0-75.0); Hematocrit 30.1 % (36.0-47.0); Hemoglobin 9.4 g/dL (12.0-16.0); Mean Corpuscular HGB CONC 31.2 g/dL (32.0-36.0); Mean Corpuscular Hemoglobin 29.2 pg (27.0-31.0); Mean Corpuscular Volume 93.5 fL (78.0-98.0); Platelet Count 180 10x3/uL (130-400); RBC Distribution Width 17.2 % (11.5-14.5); Red Blood Cell (RBC) Count 3.22 mill/uL (4.20-5.40)
[2024-07-14 04:30] LABS: Anion Gap 8 mmol/L (10-20); BUN (Urea Nitrogen) 18 mg/dL (9.8-20.1); Calc. Creatinine Clearance 110 mL/min (70-130); Calcium 8.4 mg/dL (7.8-10.44); Carbon Dioxide 39 mmol/L (23-31); Chloride 97 mmol/L (98-107); Estimated GFR 102; Glucose 87 mg/dL (83-110); Magnesium 1.8 mg/dL (1.6-2.6); Sodium 140 mmol/L (136-145)
[2024-07-14] MEDS: Magnesium 2 GM/50 ML(in water) 2 GM in Premix 1 BAG IVPB SCH (09:01)
[2024-07-14] MEDS: Pantoprazole DR 40 MG TAB PO SCH (09:02)
[2024-07-15 06:37] LABS: #Basophils Less than 0.03 10x3/uL (0.0-0.2); %Basophils 0.2 % (0.0-1.0); %Eosinophils 0.3 % (0.0-10.0); %Lymphocytes 7.7 % (21.0-51.0); %Monocytes 7.7 % (0.0-10.0); %Neutrophils 83.2 % (42.0-75.0); Mean Corpuscular HGB CONC 30.8 g/dL (32.0-36.0); Mean Corpuscular Hemoglobin 29.3 pg (27.0-31.0); Mean Corpuscular Volume 95.2 fL (78.0-98.0); Mean Platelet Volume 9.8 fL (7.4-10.4); Platelet Count 177 10x3/uL (130-400); RBC Distribution Width 17.6 % (11.5-14.5); Red Blood Cell (RBC) Count 2.73 mill/uL (4.20-5.40)
[2024-07-15 06:46] LABS: Anion Gap 10 mmol/L (10-20); BUN (Urea Nitrogen) 12 mg/dL (9.8-20.1); Calc. Creatinine Clearance 91 mL/min (70-130); Calcium 8.1 mg/dL (7.8-10.44); Carbon Dioxide 39 mmol/L (23-31); Chloride 96 mmol/L (98-107); Estimated GFR 98; Glucose 78 mg/dL (83-110); Potassium 3.7 mmol/L (3.5-5.1); Sodium 141 mmol/L (136-145)
[2024-07-15] MEDS: Ferrous Sulfate 325 MG TAB PO SCH (08:11)
[2024-07-15] MEDS: Ascorbic Acid 500 mg Chewable Tablet PO SCH (08:11)
[2024-07-15] MEDS: Fluticasone Propionate Nasal Spray 16 gm Bottle NASAL SCH (10:28)
[2024-07-15] MEDS: Acetaminophen 500 MG TAB PO PRN (21:06)
[2024-07-15] MEDS: traMADol HCl 50 MG TAB PO PRN (23:36)
[2024-07-16 07:47] LABS: #Basophils Less than 0.03 10x3/uL (0.0-0.2); %Basophils 0.1 % (0.0-1.0); %Eosinophils 0.9 % (0.0-10.0); %Lymphocytes 11.4 % (21.0-51.0); %Monocytes 9.4 % (0.0-10.0); %Neutrophils 77.4 % (42.0-75.0); Hematocrit 23.9 % (36.0-47.0); Hemoglobin 7.5 g/dL (12.0-16.0); Mean Corpuscular HGB CONC 31.4 g/dL (32.0-36.0); Mean Corpuscular Hemoglobin 30.2 pg (27.0-31.0); Mean Corpuscular Volume 96.4 fL (78.0-98.0); Platelet Count 180 10x3/uL (130-400); RBC Distribution Width 17.7 % (11.5-14.5); Red Blood Cell (RBC) Count 2.48 mill/uL (4.20-5.40)
[2024-07-16 08:00] LABS: Anion Gap 10 mmol/L (10-20); BUN (Urea Nitrogen) 9 mg/dL (9.8-20.1); Calc. Creatinine Clearance 98 mL/min (70-130); Calcium 7.9 mg/dL (7.8-10.44); Carbon Dioxide 38 mmol/L (23-31); Chloride 96 mmol/L (98-107); Estimated GFR 99; Glucose 83 mg/dL (83-110); Sodium 141 mmol/L (136-145)
[2024-07-16] MEDS ORDERED: Potassium Chloride 20 MEQ in Premix 1 BAG IVPB SCH (08:15)
[2024-07-16] MEDS: Potassium Chloride 20 MEQ TAB PO SCH ×2 (08:36→16:59)
[2024-07-16] MEDS ORDERED: Ascorbic Acid 500 mg Chewable Tablet PO SCH (09:00)
[2024-07-16] MEDS: Tamsulosin HCl 0.4 MG CAP PO SCH (09:02)
[2024-07-16 14:40] LABS: Hematocrit 26.6 % (36.0-47.0); Hemoglobin 8.4 g/dL (12.0-16.0); Mean Corpuscular HGB CONC 31.6 g/dL (32.0-36.0); Mean Corpuscular Hemoglobin 29.8 pg (27.0-31.0); Mean Corpuscular Volume 94.3 fL (78.0-98.0); Mean Platelet Volume 10.1 fL (7.4-10.4); Platelet Count 203 10x3/uL (130-400); Red Blood Cell (RBC) Count 2.82 mill/uL (4.20-5.40)
[2024-07-16] MEDS ORDERED: Ferrous Sulfate 325 MG TAB PO SCH (17:00)
[2024-07-17] MEDS: Albuterol 2.5 MG (3 mL) NEB NEB PRN (01:59)
[2024-07-17] MEDS: Midodrine HCl 5 MG TAB PO SCH (02:18)
[2024-07-17 05:25] VITALS: BMI 26.7
[2024-07-17 05:56] LABS: Hemoglobin 7.2 g/dL (12.0-16.0)
[2024-07-17 06:25] LABS: Anion Gap 7 mmol/L (10-20); BUN (Urea Nitrogen) 9 mg/dL (9.8-20.1); Calc. Creatinine Clearance 98 mL/min (70-130); Carbon Dioxide 38 mmol/L (23-31); Chloride 99 mmol/L (98-107); Estimated GFR 99; Glucose 111 mg/dL (83-110); Magnesium 1.6 mg/dL (1.6-2.6); Potassium 3.9 mmol/L (3.5-5.1); Sodium 140 mmol/L (136-145)
[2024-07-17 08:21] LABS: Hematocrit 25.3 % (36.0-47.0); Hemoglobin 7.7 g/dL (12.0-16.0)
[2024-07-17] MEDS: Tamsulosin HCl 0.4 MG CAP PO SCH (10:16)
[2024-07-17] MEDS: predniSONE 20 MG TAB PO SCH (10:16)
[2024-07-17] MEDS: Magnesium 2 GM/50 ML(in water) 2 GM in Premix 1 BAG IVPB SCH (11:23)
[2024-07-17 12:45] VITALS: BMI 26.7
[2024-07-17] MEDS: Potassium Chloride 20 MEQ TAB PO SCH (15:49)
[2024-07-18 05:53] LABS: #Basophils Less than 0.03 10x3/uL (0.0-0.2); %Basophils 0.2 % (0.0-1.0); %Eosinophils 0.6 % (0.0-10.0); %Lymphocytes 10.3 % (21.0-51.0); %Monocytes 10.8 % (0.0-10.0); %Neutrophils 77.3 % (42.0-75.0); Hematocrit 30.1 % (36.0-47.0); Hemoglobin 9.3 g/dL (12.0-16.0); Mean Corpuscular HGB CONC 30.9 g/dL (32.0-36.0); Mean Corpuscular Hemoglobin 29.3 pg (27.0-31.0); Mean Platelet Volume 10.4 fL (7.4-10.4); Platelet Count 194 10x3/uL (130-400); RBC Distribution Width 18.9 % (11.5-14.5); Red Blood Cell (RBC) Count 3.17 mill/uL (4.20-5.40)
[2024-07-18] MEDS: Aspirin 81 mg Enteric Coated Tablet PO SCH (09:45)
[2024-07-18 12:40] VITALS: BP 132/60; TEMP 97.8
== END 2024-07-18 17:46 | DRG 329 ==
LOC: ERS 15:29 → ERHOLD 19:16 → CCU 22:34 → SURG A 06-30 14:34 → CCU 07-04 18:53 → IMCU/EMU 07-08 19:56 → SURG B 07-14 18:20
PROVIDERS: ADMIT Surgery; ATTEND Surgery
PROC: 0DB84ZZ Excision of Small Intestine, Percutaneous Endoscopic Approach (ICD-10-PCS; principal; 2024-06-28)
PROC: 8E0W4CZ Robotic Assisted Procedure of Trunk Region, Percutaneous Endoscopic Approach (ICD-10-PCS; 2024-06-28)
PROC: 0DB80ZZ Excision of Small Intestine, Open Approach (ICD-10-PCS; 2024-07-04)
DX: K40.30 Unilateral inguinal hernia, with obstruction, without gangrene, not specified as recurrent (principal); J95.821 Acute postprocedural respiratory failure; K55.029 Acute infarction of small intestine, extent unspecified; K65.9 Peritonitis, unspecified; I50.22 Chronic systolic (congestive) heart failure; K56.7 Ileus, unspecified; D53.9 Nutritional anemia, unspecified; I25.2 Old myocardial infarction; I11.0 Hypertensive heart disease with heart failure; J44.9 Chronic obstructive pulmonary disease, unspecified; I27.20 Pulmonary hypertension, unspecified; E87.6 Hypokalemia; E11.9 Type 2 diabetes mellitus without complications; Z90.49 Acquired absence of other specified parts of digestive tract; Z90.710 Acquired absence of both cervix and uterus; Z87.891 Personal history of nicotine dependence; Z79.899 Other long term (current) drug therapy
CPT/HCPCS: 36415; 36416; 36430; 36600; 71045; 74019; 74177; 74250; 80048; 80053; 82805; 83605; 83690; 83735; 83880; 84100; 84145; 84478; 84484; 85014; 85018; 85025; 85610; 85730; 86850; 86900; 86901; 87040; 88307; 93005; 93010; 94002; 94003; 94640; 94760; 96374; 96375; 97139; A4314; C1713; C1751; C1776; J0171; J0612; J0665; J1100; J1120; J1644; J1650; J1720; J1815; J1885; J2003; J2060; J2270; J2272; J2405; J2470; J2543; J2704; J3010; J3475; J3480; J3490; J7030; J7042; J7050; J7120; J7512; J7611; J7620; J7626; J7999; P9016; P9047; Q9963; Q9967

== ENCOUNTER 2024-07-20 18:37 | Inpatient (IN) | payer MEDICARE ==
[2024-07-20] MEDS ORDERED: Ipratropium/Albuterol 3 ML NEB ONE (18:53)
[2024-07-20] MEDS ORDERED: NOREPINEPHRINE 8 MG/250 ML-D5W 250 ML ONE (19:29)
[2024-07-20 19:36] LABS: #Basophils Less than 0.03 10x3/uL (0.0-0.2); #Eosinophils Less than 0.03 10x3/uL (0.0-0.7); %Basophils 0.1 % (0.0-1.0); %Eosinophils 0.1 % (0.0-10.0); %Lymphocytes 2.6 % (21.0-51.0); %Monocytes 3.7 % (0.0-10.0); %Neutrophils 93.1 % (42.0-75.0); Hematocrit 28.5 % (36.0-47.0); Hemoglobin 8.9 g/dL (12.0-16.0); Mean Corpuscular HGB CONC 31.2 g/dL (32.0-36.0); Mean Platelet Volume 8.9 fL (7.4-10.4); Platelet Count 252 10x3/uL (130-400); RBC Distribution Width 18.1 % (11.5-14.5); Red Blood Cell (RBC) Count 2.97 mill/uL (4.20-5.40)
[2024-07-20 19:49] LABS: INR-International Normal Ratio 1.1; Prothrombin Time 14.1 sec (12.0-14.7)
[2024-07-20 19:50] LABS: PTT 35.9 sec (22.9-36.1)
[2024-07-20 19:54] LABS: ALT (SGPT) 25 U/L (8-55); AST (SGOT) 18 U/L (5-34); Albumin 2.3 g/dL (3.4-4.8); Alkaline Phosphatase 71 U/L (40-110); Anion Gap 9 mmol/L (10-20); BUN (Urea Nitrogen) 8 mg/dL (9.8-20.1); Bilirubin, Total 0.9 mg/dL (0.2-1.2); Calc. Creatinine Clearance 0 mL/min (70-130); Calcium 8.1 mg/dL (7.8-10.44); Carbon Dioxide 36 mmol/L (23-31); Chloride 95 mmol/L (98-107); Estimated GFR 95; Globulin 2.2 g/dL (2.4-3.5); Glucose 97 mg/dL (83-110); Potassium 3.3 mmol/L (3.5-5.1); Protein, Total 4.5 g/dL (5.8-8.1); Sodium 137 mmol/L (136-145)
[2024-07-20 19:59] LABS: Troponin I 0.019 ng/mL (< 0.028)
[2024-07-20] MEDS ORDERED: Piperacillin/Tazobactam 4.5 GM VIAL ONE (21:59)
[2024-07-20] MEDS ORDERED: Sodium Chloride 0.9% 100 ML ONE (22:01)
[2024-07-20] MEDS ORDERED: Ipratropium/Albuterol 3 ML NEB NEB PRN (22:27)
[2024-07-20] MEDS ORDERED: Ondansetron ODT 4 MG TAB PO PRN (22:27)
[2024-07-20] MEDS ORDERED: Ondansetron PF 4 MG/2 ML Vial IVP PRN (22:27)
[2024-07-20] MEDS ORDERED: Acetaminophen 650 MG Suppository PR PRN (22:27)
[2024-07-20] MEDS ORDERED: Azithromycin 500 MG in Sodium Chloride 0.9% 250 ML 250 ML IVPB SCH (22:30)
[2024-07-20] MEDS: Ipratropium/Albuterol 3 ML NEB NEB SCH (23:05)
[2024-07-20 23:21] VITALS: BMI 20.7
[2024-07-20] MEDS ORDERED: cefTRIAXone\\ROCEPHIN 2 GM in Sodium Chloride 0.9% 100 ML IVPB SCH (23:59)
[2024-07-21] MEDS: Albumin 25% 25 GM (100 mL) BOT IVPB SCH (00:15)
[2024-07-21] MEDS: Pramipexole Di-HCl 1 MG TAB PO SCH ×2 (00:23→19:44)
[2024-07-21] MEDS: Vancomycin HCl 750 MG in Sodium Chloride 0.9% 250 ML 250 ML IVPB SCH ×2 (01:17→09:01)
[2024-07-21] MEDS: Piperacillin/Tazobactam 3.375 GM in Sodium Chloride 0.9% 100 ML IVPB SCH (02:07)
[2024-07-21] MEDS ORDERED: NOREPINEPHRINE 8 MG/250 ML-D5W 250 ML IVPB SCH (05:00)
[2024-07-21 06:10] LABS: #Basophils Less than 0.03 10x3/uL (0.0-0.2); #Eosinophils Less than 0.03 10x3/uL (0.0-0.7); %Basophils 0.2 % (0.0-1.0); %Eosinophils 0.2 % (0.0-10.0); %Lymphocytes 3.4 % (21.0-51.0); %Monocytes 3.8 % (0.0-10.0); %Neutrophils 92.1 % (42.0-75.0); Hematocrit 25.9 % (36.0-47.0); Hemoglobin 7.9 g/dL (12.0-16.0); Mean Corpuscular HGB CONC 30.5 g/dL (32.0-36.0); Mean Corpuscular Hemoglobin 29.6 pg (27.0-31.0); Mean Platelet Volume 8.7 fL (7.4-10.4); Platelet Count 217 10x3/uL (130-400); RBC Distribution Width 18.2 % (11.5-14.5); Red Blood Cell (RBC) Count 2.67 mill/uL (4.20-5.40)
[2024-07-21 06:28] LABS: Anion Gap 12 mmol/L (10-20); BUN (Urea Nitrogen) 8 mg/dL (9.8-20.1); Calc. Creatinine Clearance 88 mL/min (70-130); Calcium 8.3 mg/dL (7.8-10.44); Carbon Dioxide 34 mmol/L (23-31); Chloride 95 mmol/L (98-107); Estimated GFR 97; Glucose 84 mg/dL (83-110); Potassium 2.8 mmol/L (3.5-5.1); Sodium 138 mmol/L (136-145)
[2024-07-21 06:29] LABS: Vancomycin, Random 15.1 ug/mL (See Comment)
[2024-07-21] MEDS: Mometasone 200 MCG/Formoterol 5 MCG 120 PUFF INHALER INH SCH (07:22)
[2024-07-21] MEDS: Potassium Chloride 20 MEQ in Premix 1 BAG IVPB SCH (09:00)
[2024-07-21] MEDS ORDERED: Vancomycin 1 GM in Premix 1 BAG IVPB SCH (09:00)
[2024-07-21] MEDS: methylPREDNISolone Sod Succ/PF 125 MG/2 ML VIAL IVP SCH (09:00)
[2024-07-21] MEDS: Famotidine/PF 20 mg/2ml Vial SLOW IVP SCH (09:01)
[2024-07-21] MEDS: dilTIAZem CD 120 MG CAP PO SCH (09:01)
[2024-07-21] MEDS: Enoxaparin 40 MG (0.4 mL) SYRINGE SC SCH (09:01)
[2024-07-21] MEDS: Magnesium Oxide 400 MG TAB PO SCH (09:01)
[2024-07-21 12:49] LABS: Hematocrit 28.5 % (36.0-47.0); Hemoglobin 8.9 g/dL (12.0-16.0)
[2024-07-21 13:54] LABS: Magnesium 1.5 mg/dL (1.6-2.6)
[2024-07-21] MEDS ORDERED: methylPREDNISolone Sod Succ 40 MG VIAL IVP SCH (14:00)
[2024-07-21] MEDS: Magnesium 2 GM/50 ML(in water) 2 GM in Premix 1 BAG IVPB SCH (15:12)
[2024-07-21] MEDS ORDERED: Roflumilast [Daliresp] 500 MCG Tablet PO SCH (21:00)
[2024-07-21] MEDS ORDERED: Potassium Chloride 40 MEQ in Premix 1 BAG IVPB SCH (21:45)
[2024-07-21] MEDS: Montelukast Sodium 10 mg Tablet PO SCH (21:52)
[2024-07-21] MEDS: methylPREDNISolone Sod Succ 40 MG VIAL IVP SCH (21:52)
[2024-07-22 00:02] LABS: Anion Gap 14 mmol/L (10-20); BUN (Urea Nitrogen) 8 mg/dL (9.8-20.1); Calc. Creatinine Clearance 88 mL/min (70-130); Calcium 8.8 mg/dL (7.8-10.44); Carbon Dioxide 32 mmol/L (23-31); Chloride 97 mmol/L (98-107); Estimated GFR 97; Glucose 194 mg/dL (83-110); Potassium 3.3 mmol/L (3.5-5.1); Sodium 140 mmol/L (136-145)
[2024-07-22] MEDS: Pramipexole Di-HCl 1 MG TAB PO PRN (00:57)
[2024-07-22] MEDS: Dexmedetomidine In 0.9 % NaCl 100 ML IVPB SCH (02:02)
[2024-07-22 06:35] LABS: Hematocrit 26.5 % (36.0-47.0); Hemoglobin 8.4 g/dL (12.0-16.0); Mean Corpuscular HGB CONC 31.7 g/dL (32.0-36.0); Mean Corpuscular Hemoglobin 30.3 pg (27.0-31.0); Mean Corpuscular Volume 95.7 fL (78.0-98.0); Mean Platelet Volume 9.4 fL (7.4-10.4); Platelet Count 222 10x3/uL (130-400); Red Blood Cell (RBC) Count 2.77 mill/uL (4.20-5.40)
[2024-07-22 06:56] LABS: Anion Gap 12 mmol/L (10-20); BUN (Urea Nitrogen) 9 mg/dL (9.8-20.1); Calc. Creatinine Clearance 89 mL/min (70-130); Calcium 9.1 mg/dL (7.8-10.44); Carbon Dioxide 34 mmol/L (23-31); Chloride 98 mmol/L (98-107); Estimated GFR 98; Glucose 194 mg/dL (83-110); Phosphorus 2.4 mg/dL (2.3-4.7); Potassium 3.3 mmol/L (3.5-5.1); Sodium 141 mmol/L (136-145)
[2024-07-22] MEDS: Morphine 2 MG/ML VIAL SLOW IVP PRN (08:25)
[2024-07-22] MEDS: Potassium Chloride 20 MEQ in Premix 1 BAG IVPB SCH (10:08)
[2024-07-22] MEDS: FLU (Fluad Triv) TS24-25 (65UP)/MF59C/PF 45 MCG/0.5 ML Syringe IM ONE (11:37)
[2024-07-22] MEDS: Lorazepam 2 MG/ML VIAL SLOW IVP SCH (12:35)
[2024-07-22] MEDS: Pramipexole Di-HCl 1 MG TAB PO SCH (22:41)
[2024-07-23 04:52] LABS: Vancomycin, Random 13.5 ug/mL (See Comment)
[2024-07-23] MEDS: Acetaminophen 325 MG TAB PO PRN (08:07)
[2024-07-23] MEDS: Vancomycin 1 GM in Premix 1 BAG IVPB SCH (20:24)
[2024-07-24 05:22] LABS: Hematocrit 29.2 % (36.0-47.0); Hemoglobin 8.7 g/dL (12.0-16.0); Mean Corpuscular HGB CONC 29.8 g/dL (32.0-36.0); Mean Corpuscular Hemoglobin 29.8 pg (27.0-31.0); Mean Platelet Volume 9.1 fL (7.4-10.4); Platelet Count 246 10x3/uL (130-400); RBC Distribution Width 17.3 % (11.5-14.5); Red Blood Cell (RBC) Count 2.92 mill/uL (4.20-5.40)
[2024-07-24 05:49] LABS: Anion Gap 11 mmol/L (10-20); BUN (Urea Nitrogen) 14 mg/dL (9.8-20.1); Calc. Creatinine Clearance 84 mL/min (70-130); Calcium 8.7 mg/dL (7.8-10.44); Carbon Dioxide 38 mmol/L (23-31); Chloride 97 mmol/L (98-107); Estimated GFR 96; Glucose 188 mg/dL (83-110); Potassium 3.2 mmol/L (3.5-5.1); Sodium 143 mmol/L (136-145)
[2024-07-24] MEDS: Potassium Chloride 20 MEQ TAB PO SCH (09:43)
[2024-07-24] MEDS ORDERED: Docusate 100 MG CAP PO PRN (11:47)
[2024-07-24] MEDS ORDERED: Polyethylene Glycol 3350 17 GM Packet PO PRN (11:47)
[2024-07-25 04:36] LABS: Vancomycin, Random 16.7 ug/mL (See Comment)
[2024-07-25 04:39] LABS: Anion Gap 8 mmol/L (10-20); BUN (Urea Nitrogen) 11 mg/dL (9.8-20.1); Calc. Creatinine Clearance 92 mL/min (70-130); Calcium 8.9 mg/dL (7.8-10.44); Carbon Dioxide 44 mmol/L (23-31); Chloride 93 mmol/L (98-107); Estimated GFR 98; Glucose 144 mg/dL (83-110); Magnesium 1.7 mg/dL (1.6-2.6); Potassium 3.4 mmol/L (3.5-5.1); Sodium 142 mmol/L (136-145)
[2024-07-25] MEDS: methylPREDNISolone Sod Succ 40 MG VIAL IVP SCH (09:27)
[2024-07-25] MEDS: Potassium Chloride 20 MEQ TAB PO SCH (09:28)
[2024-07-26 03:33] LABS: Hematocrit 33.1 % (36.0-47.0); Mean Corpuscular HGB CONC 30.2 g/dL (32.0-36.0); Mean Corpuscular Hemoglobin 29.1 pg (27.0-31.0); Mean Corpuscular Volume 96.2 fL (78.0-98.0); Mean Platelet Volume 9.2 fL (7.4-10.4); Platelet Count 238 10x3/uL (130-400); RBC Distribution Width 16.6 % (11.5-14.5); Red Blood Cell (RBC) Count 3.44 mill/uL (4.20-5.40)
[2024-07-26 03:50] LABS: Anion Gap 13 mmol/L (10-20); BUN (Urea Nitrogen) 11 mg/dL (9.8-20.1); Calc. Creatinine Clearance 88 mL/min (70-130); Calcium 8.7 mg/dL (7.8-10.44); Carbon Dioxide 43 mmol/L (23-31); Chloride 91 mmol/L (98-107); Estimated GFR 97; Glucose 170 mg/dL (83-110); Potassium 3.8 mmol/L (3.5-5.1); Sodium 143 mmol/L (136-145)
[2024-07-26] MEDS: Piperacillin/Tazobactam 3.375 GM VIAL ONE (10:52)
[2024-07-27 04:52] LABS: #Basophils 0.03 10x3/uL (0.0-0.2); #Eosinophils Less than 0.03 10x3/uL (0.0-0.7); %Basophils 0.2 % (0.0-1.0); %Lymphocytes 3.1 % (21.0-51.0); %Monocytes 4.5 % (0.0-10.0); %Neutrophils 90.1 % (42.0-75.0); Hematocrit 32.5 % (36.0-47.0); Hemoglobin 9.9 g/dL (12.0-16.0); Mean Corpuscular HGB CONC 30.5 g/dL (32.0-36.0); Mean Corpuscular Hemoglobin 29.2 pg (27.0-31.0); Mean Corpuscular Volume 95.9 fL (78.0-98.0); Mean Platelet Volume 9.3 fL (7.4-10.4); Platelet Count 233 10x3/uL (130-400); RBC Distribution Width 16.3 % (11.5-14.5); Red Blood Cell (RBC) Count 3.39 mill/uL (4.20-5.40)
[2024-07-27 05:39] LABS: Anion Gap 7 mmol/L (10-20); BUN (Urea Nitrogen) 14 mg/dL (9.8-20.1); Calc. Creatinine Clearance 86 mL/min (70-130); Calcium 8.9 mg/dL (7.8-10.44); Carbon Dioxide 48 mmol/L (23-31); Chloride 90 mmol/L (98-107); Estimated GFR 97; Glucose 174 mg/dL (83-110); Potassium 3.4 mmol/L (3.5-5.1); Sodium 142 mmol/L (136-145)
[2024-07-27] MEDS: methylPREDNISolone Sod Succ 40 MG VIAL IVP SCH (09:11)
[2024-07-27] MEDS ORDERED: acetaZOLAMIDE Sodium 250 MG in Sodium Chloride 0.9% 50 ML IVPB SCH (13:25)
[2024-07-27 13:42] LABS: Base Excess 13.6 mEq/L (-2.0 to +3.0); Calcium, Ionized (venous) 1.13 mmol/L (1.16-1.32); Chloride (VBG) 90 mmol/L (98-106); Hematocrit-VBG 33 % (36.0-47.0); Hemoglobin (Hb) 11.3 g/dL (11.7-16.1); Potassium (VBG) 3.72 mmol/L (3.70-5.30); Sodium 136 mmol/L (133-146); pH (venous) 7.471 (7.32-7.43)
[2024-07-27 13:43] LABS: Actual Bicarbonate (HCO3v) 39.2 mEq/L (22-28)
[2024-07-27] MEDS: Potassium Chloride 20 MEQ TAB PO SCH (14:28)
[2024-07-27] MEDS: acetaZOLAMIDE Sodium 500 mg Vial IVP SCH (14:29)
[2024-07-27] MEDS: Sterile Water 10 ML VIAL IVP SCH (14:29)
[2024-07-28 04:08] LABS: #Basophils 0.04 10x3/uL (0.0-0.2); #Eosinophils Less than 0.03 10x3/uL (0.0-0.7); %Basophils 0.2 % (0.0-1.0); %Lymphocytes 2.6 % (21.0-51.0); %Monocytes 5.6 % (0.0-10.0); %Neutrophils 88.5 % (42.0-75.0); Hematocrit 31.8 % (36.0-47.0); Hemoglobin 9.8 g/dL (12.0-16.0); Mean Corpuscular HGB CONC 30.8 g/dL (32.0-36.0); Mean Corpuscular Hemoglobin 29.8 pg (27.0-31.0); Mean Corpuscular Volume 96.7 fL (78.0-98.0); Mean Platelet Volume 9.2 fL (7.4-10.4); Platelet Count 254 10x3/uL (130-400); RBC Distribution Width 16.3 % (11.5-14.5); Red Blood Cell (RBC) Count 3.29 mill/uL (4.20-5.40)
[2024-07-28 04:30] LABS: Anion Gap 9 mmol/L (10-20); BUN (Urea Nitrogen) 15 mg/dL (9.8-20.1); Calc. Creatinine Clearance 74 mL/min (70-130); Calcium 9.3 mg/dL (7.8-10.44); Carbon Dioxide 38 mmol/L (23-31); Chloride 96 mmol/L (98-107); Estimated GFR 94; Glucose 151 mg/dL (83-110); Sodium 139 mmol/L (136-145)
[2024-07-29 03:40] LABS: #Basophils 0.04 10x3/uL (0.0-0.2); #Eosinophils Less than 0.03 10x3/uL (0.0-0.7); %Basophils 0.2 % (0.0-1.0); %Eosinophils 0.1 % (0.0-10.0); %Lymphocytes 5.2 % (21.0-51.0); %Monocytes 6.5 % (0.0-10.0); %Neutrophils 84.5 % (42.0-75.0); Hematocrit 31.7 % (36.0-47.0); Hemoglobin 9.9 g/dL (12.0-16.0); Mean Corpuscular HGB CONC 31.2 g/dL (32.0-36.0); Mean Corpuscular Hemoglobin 30.2 pg (27.0-31.0); Mean Corpuscular Volume 96.6 fL (78.0-98.0); Mean Platelet Volume 8.8 fL (7.4-10.4); Platelet Count 238 10x3/uL (130-400); RBC Distribution Width 16.7 % (11.5-14.5); Red Blood Cell (RBC) Count 3.28 mill/uL (4.20-5.40)
[2024-07-29 03:52] LABS: Anion Gap 11 mmol/L (10-20); BUN (Urea Nitrogen) 16 mg/dL (9.8-20.1); Calc. Creatinine Clearance 71 mL/min (70-130); Calcium 9.6 mg/dL (7.8-10.44); Carbon Dioxide 30 mmol/L (23-31); Chloride 98 mmol/L (98-107); Estimated GFR 95; Glucose 125 mg/dL (83-110); Potassium 4.1 mmol/L (3.5-5.1); Sodium 135 mmol/L (136-145)
[2024-07-29] MEDS: predniSONE 20 MG TAB PO SCH (10:23)
[2024-07-29 10:24] LABS: Actual Bicarbonate (HCO3v) 30.2 mEq/L (22-28); Base Excess 7.8 mEq/L (-2.0 to +3.0); Calcium, Ionized (venous) 1.04 mmol/L (1.16-1.32); Chloride (VBG) 96 mmol/L (98-106); Hematocrit-VBG 34 % (36.0-47.0); Hemoglobin (Hb) 11.4 g/dL (11.7-16.1); Potassium (VBG) 4.34 mmol/L (3.70-5.30); Sodium 134 mmol/L (133-146); pH (venous) 7.562 (7.32-7.43)
[2024-07-30 06:29] LABS: #Basophils 0.03 10x3/uL (0.0-0.2); #Eosinophils Less than 0.03 10x3/uL (0.0-0.7); %Basophils 0.2 % (0.0-1.0); %Lymphocytes 5.8 % (21.0-51.0); %Monocytes 6.7 % (0.0-10.0); %Neutrophils 84.6 % (42.0-75.0); Hematocrit 30.9 % (36.0-47.0); Hemoglobin 9.7 g/dL (12.0-16.0); Mean Corpuscular HGB CONC 31.4 g/dL (32.0-36.0); Mean Corpuscular Hemoglobin 29.5 pg (27.0-31.0); Mean Corpuscular Volume 93.9 fL (78.0-98.0); Platelet Count 233 10x3/uL (130-400); RBC Distribution Width 16.6 % (11.5-14.5); Red Blood Cell (RBC) Count 3.29 mill/uL (4.20-5.40)
[2024-07-30 06:43] LABS: Anion Gap 9 mmol/L (10-20); BUN (Urea Nitrogen) 17 mg/dL (9.8-20.1); Calc. Creatinine Clearance 62 mL/min (70-130); Calcium 9.1 mg/dL (7.8-10.44); Carbon Dioxide 31 mmol/L (23-31); Chloride 102 mmol/L (98-107); Estimated GFR 93; Glucose 122 mg/dL (83-110); Potassium 3.5 mmol/L (3.5-5.1); Sodium 138 mmol/L (136-145)
[2024-07-30] MEDS: Pramipexole Di-HCl 1 MG TAB PO SCH (15:04)
[2024-07-31 07:05] LABS: #Basophils 0.03 10x3/uL (0.0-0.2); #Eosinophils Less than 0.03 10x3/uL (0.0-0.7); %Basophils 0.2 % (0.0-1.0); %Eosinophils 0.1 % (0.0-10.0); %Lymphocytes 6.2 % (21.0-51.0); %Monocytes 5.4 % (0.0-10.0); %Neutrophils 85.5 % (42.0-75.0); Hematocrit 28.8 % (36.0-47.0); Hemoglobin 9.2 g/dL (12.0-16.0); Mean Corpuscular HGB CONC 31.9 g/dL (32.0-36.0); Mean Corpuscular Volume 93.8 fL (78.0-98.0); Platelet Count 229 10x3/uL (130-400); Red Blood Cell (RBC) Count 3.07 mill/uL (4.20-5.40)
[2024-07-31 07:20] LABS: Anion Gap 10 mmol/L (10-20); BUN (Urea Nitrogen) 17 mg/dL (9.8-20.1); Calc. Creatinine Clearance 75 mL/min (70-130); Calcium 9.1 mg/dL (7.8-10.44); Carbon Dioxide 32 mmol/L (23-31); Chloride 103 mmol/L (98-107); Estimated GFR 98; Glucose 109 mg/dL (83-110); Potassium 3.3 mmol/L (3.5-5.1); Sodium 142 mmol/L (136-145)
[2024-08-01 06:10] LABS: #Basophils Less than 0.03 10x3/uL (0.0-0.2); %Basophils 0.1 % (0.0-1.0); %Eosinophils 0.2 % (0.0-10.0); %Lymphocytes 6.7 % (21.0-51.0); %Monocytes 6.5 % (0.0-10.0); %Neutrophils 83.9 % (42.0-75.0); Hematocrit 29.2 % (36.0-47.0); Hemoglobin 9.3 g/dL (12.0-16.0); Mean Corpuscular HGB CONC 31.8 g/dL (32.0-36.0); Mean Corpuscular Hemoglobin 30.1 pg (27.0-31.0); Mean Corpuscular Volume 94.5 fL (78.0-98.0); Mean Platelet Volume 8.8 fL (7.4-10.4); Platelet Count 235 10x3/uL (130-400); RBC Distribution Width 17.2 % (11.5-14.5); Red Blood Cell (RBC) Count 3.09 mill/uL (4.20-5.40)
[2024-08-01 06:28] LABS: Anion Gap 11 mmol/L (10-20); BUN (Urea Nitrogen) 17 mg/dL (9.8-20.1); Calc. Creatinine Clearance 77 mL/min (70-130); Calcium 9.2 mg/dL (7.8-10.44); Carbon Dioxide 33 mmol/L (23-31); Chloride 101 mmol/L (98-107); Estimated GFR 98; Glucose 88 mg/dL (83-110); Potassium 3.7 mmol/L (3.5-5.1); Sodium 141 mmol/L (136-145)
[2024-08-01 14:52] VITALS: BMI 18.8
[2024-08-02 05:42] LABS: #Basophils 0.03 10x3/uL (0.0-0.2); #Eosinophils Less than 0.03 10x3/uL (0.0-0.7); %Basophils 0.2 % (0.0-1.0); %Lymphocytes 2.5 % (21.0-51.0); %Monocytes 5.7 % (0.0-10.0); %Neutrophils 88.2 % (42.0-75.0); Hematocrit 28.5 % (36.0-47.0); Hemoglobin 8.9 g/dL (12.0-16.0); Mean Corpuscular HGB CONC 31.2 g/dL (32.0-36.0); Mean Corpuscular Hemoglobin 29.5 pg (27.0-31.0); Mean Corpuscular Volume 94.4 fL (78.0-98.0); Mean Platelet Volume 8.9 fL (7.4-10.4); Platelet Count 229 10x3/uL (130-400); RBC Distribution Width 17.1 % (11.5-14.5); Red Blood Cell (RBC) Count 3.02 mill/uL (4.20-5.40)
[2024-08-02 06:04] LABS: Anion Gap 9 mmol/L (10-20); BUN (Urea Nitrogen) 19 mg/dL (9.8-20.1); Calc. Creatinine Clearance 62 mL/min (70-130); Calcium 9.2 mg/dL (7.8-10.44); Carbon Dioxide 35 mmol/L (23-31); Chloride 99 mmol/L (98-107); Estimated GFR 96; Glucose 168 mg/dL (83-110); Potassium 3.7 mmol/L (3.5-5.1); Sodium 139 mmol/L (136-145)
[2024-08-02] MEDS: Enoxaparin 30 MG (0.3 mL) SYRINGE SC SCH (09:02)
[2024-08-02 17:11] VITALS: BP 129/63; TEMP 98.3
== END 2024-08-02 19:09 | disposition home health service (06) | DRG 871 ==
LOC: SUATTDRO 18:37 → ERS 18:37 → CCU 21:32 → IMCU/EMU 07-21 07:20 → T4-A 07-30 16:15
PROVIDERS: ADMIT Family Medicine; ATTEND Internal Medicine
PROC: 3E033XZ Introduction of Vasopressor into Peripheral Vein, Percutaneous Approach (ICD-10-PCS; principal; 2024-07-20)
PROC: 3E03329 Introduction of Other Anti-infective into Peripheral Vein, Percutaneous Approach (ICD-10-PCS; 2024-07-20)
PROC: 30233J1 Transfusion of Nonautologous Serum Albumin into Peripheral Vein, Percutaneous Approach (ICD-10-PCS; 2024-07-20)
PROC: 5A09357 Assistance with Respiratory Ventilation, Less than 24 Consecutive Hours, Continuous Positive Airway Pressure (ICD-10-PCS; 2024-07-20)
PROC: 5A0955A Assistance with Respiratory Ventilation, Greater than 96 Consecutive Hours, High Flow/Velocity Cannula (ICD-10-PCS; 2024-07-21)
DX: A41.9 Sepsis, unspecified organism (principal); I50.23 Acute on chronic systolic (congestive) heart failure; J18.9 Pneumonia, unspecified organism; R65.21 Severe sepsis with septic shock; J96.21 Acute and chronic respiratory failure with hypoxia; J44.1 Chronic obstructive pulmonary disease with (acute) exacerbation; I42.9 Cardiomyopathy, unspecified; Z66 Do not resuscitate; I11.0 Hypertensive heart disease with heart failure; Z90.710 Acquired absence of both cervix and uterus; Z90.49 Acquired absence of other specified parts of digestive tract; Z98.890 Other specified postprocedural states; Z87.891 Personal history of nicotine dependence; Z79.899 Other long term (current) drug therapy; D64.9 Anemia, unspecified; E87.6 Hypokalemia; I27.20 Pulmonary hypertension, unspecified; Z79.82 Long term (current) use of aspirin; R53.81 Other malaise
CPT/HCPCS: 36415; 36416; 71045; 71275; 80048; 80202; 82805; 83605; 83735; 84100; 84484; 85025; 85027; 85610; 85730; 87040; 87081; 87633; 93005; 94640; 94660; 94760; 96374; 96375; J1120; J1650; J2060; J2272; J2543; J2919; J3370; J3475; J3480; J3490; J7050; J7512; J7620; P9047; Q9967